=== PATIENT | female | born 1980 | race Caucasian/White ===

== ENCOUNTER 2016-12-05 16:19 | Emergency (ER) | payer OTHER ==
[2016-12-05] MEDS ORDERED: METOCLOPRAMIDE 5 MG/ML 2 ML VIAL IVP STA (16:32)
[2016-12-05] MEDS ORDERED: SODIUM CHLORIDE 0.9% 2,000 ML IV STA (16:32)
[2016-12-05] MEDS ORDERED: HYDROmorphone 1 MG/ML 1 ML SYRINGE IVP STA (16:48)
[2016-12-05 17:10] LABS: Basophils # (A) 0.1 k/uL (0-0.2); Basophils % (A) 1 %; CH 30.7; CHCM 32.6; Eosinophils # (A) 0.1 k/uL (0-0.7); Eosinophils % (A) 2 %; HCT 46.5 % (34.0-46.0); HDW 2.13; HGB 15.2 gm/dL (11.4-16.0); Luc # (Auto) 0.14; Luc % (Auto) 3; Lymphocytes # (A) 0.8 k/uL (1.0-4.8); Lymphocytes % (A) 16 %; MCH 30.8 pg (25.0-35.0); MCHC 32.6 g/dL (31.0-37.0); MCV 94.6 fL (80.0-100.0); Mean Platelet Volume 7.2; Monocytes # (A) 0.4 k/uL (0-1.0); Monocytes % (A) 8 %; Neutrophils # (A) 3.7 k/uL (1.3-7.7); Neutrophils % (A) 71 %; RBC 4.92 m/uL (3.80-5.40); RDW 13.3 % (11.5-15.5); WBC 5.3 k/uL (3.8-10.6); WBC (Perox) 5.01
[2016-12-05 17:36] LABS: ALT 32 U/L (9-52); AST 28 U/L (14-36); Alkaline Phosphatase 60 U/L (38-126); Amylase 63 U/L (30-110); Anion Gap 11 mmol/L; Blood Urea Nitrogen 15 mg/dL (7-17); Calcium 9.5 mg/dL (8.4-10.2); Carbon Dioxide 26 mmol/L (22-30); Chloride 98 mmol/L (98-107); Glucose 388 mg/dL (74-99); Non-African American GFR(MDRD) >60 (>60 ml/min/1.73 sqM); Potassium 3.9 mmol/L (3.5-5.1); Sodium 135 mmol/L (137-145); Total Bilirubin 0.9 mg/dL (0.2-1.3); Total Protein 7.5 g/dL (6.3-8.2)
[2016-12-05 17:55] LABS: Appearance,Urine Clear (Clear); Bilirubin,Urine Negative (Negative); Glucose,Urine (UA) 4+ (Negative); Leukocyte Esterase,Urine Negative (Negative); Nitrite,Urine Negative (Negative); Protein,Urine Negative (Negative); Specific Gravity,Urine 1.032 (1.001-1.035); UA Billing (MACRO vs. MICRO) CHEM; Urobilinogen,Urine <2.0 mg/dL (<2.0)
--- NOTE | 2016-12-05 18:06 | ED ---
Nausea/Vomiting/Diarrhea HPI - General Chief complaint: Nausea/Vomiting/Diarrhea Stated complaint: Vomiting Time Seen by Provider: 12/05/16 16:32 Source: patient, RN notes reviewed Mode of arrival: ambulatory Limitations: no limitations - History of Present Illness Initial comments: This a 36-year-old female presents emergency Department chief complaint of nausea vomiting hyperglycemia. Patient has known diabetic. Patient states that she feels she may have picked up a GI bug. States that she's been vomiting since last night continues to try to drink. Patient states her, right eye. Patient states that he is worried about possible DKA. Patient denies fever, chills, headache or dizziness. Denies any chest pain or shortness of breath. - Related Data Home Medications Medication Instructions Recorded Confirmed INSULIN LISPRO (humaLOG) [humaLOG See Protocol SQ TID 10/28/15 12/05/16 (formulary)] Melatonin 5 mg PO HS 10/28/15 12/05/16 Insulin Detemir [Levemir] 30 unit SQ HS 04/24/16 12/05/16 Cyclobenzaprine [Flexeril] 10 mg PO DAILY PRN 12/05/16 12/05/16 HYDROcodone/APAP 10-325MG [[place] 1 tab PO DAILY PRN 12/05/16 12/05/16 10-325] Lurasidone [Latuda] 80 mg PO HS 12/05/16 12/05/16 Ondansetron [Zofran ODT] 4 mg PO Q8HR PRN 12/05/16 12/05/16 lamoTRIgine [LaMICtal] 150 mg PO BID 12/05/16 12/05/16 Allergies Allergy/AdvReac Type Severity Reaction Status Date / Time prednisone AdvReac Hallucinati Verified 12/05/16 17:15 ons Review of Systems ROS Statement: Those systems with pertinent positive or pertinent negative responses have been documented in the HPI. ROS Other: All systems not noted in ROS Statement are negative. Past Medical History Past Medical History: Diabetes Mellitus Additional Past Medical History / Comment(s): 01/07/15 admitted to [facility] with c/o liteheadeness/dizziness bs at home/meter read high>500 History of Any Multi-Drug Resistant Organisms: None Reported Past Surgical History: Breast Surgery, Section Additional Past Surgical History / Comment(s): x2, breast augmentation Past Anesthesia/Blood Transfusion Reactions: No Reported Reaction Past Psychological History: Anxiety, Bipolar, Depression, Panic Disorder Smoking Status: Former smoker Past Alcohol Use History: None Reported Past Drug Use History: None Reported - Past Family History Father Family Medical History: Hyperlipidemia, Hypertension Mother Family Medical History: No Reported History General Exam Limitations: no limitations General appearance: alert, in no apparent distress Head exam: Present: atraumatic, normocephalic, normal inspection Respiratory exam: Present: normal lung sounds bilaterally. Absent: respiratory distress, wheezes, rales, rhonchi, stridor Cardiovascular Exam: Present: regular rate, normal rhythm, normal heart sounds. Absent: systolic murmur, diastolic murmur, rubs, gallop, clicks GI/Abdominal exam: Present: soft, normal bowel sounds. Absent: distended, tenderness, guarding, rebound, rigid Back exam: Absent: CVA tenderness (R), CVA tenderness (L) Neurological exam: Present: alert, oriented X3, CN II-XII intact Skin exam: Present: warm, dry, intact, normal color. Absent: rash Course Vital Signs 12/05/16 16:26 Temperature 98.7 F Pulse Rate 97 Respiratory 20 Rate Blood Pressure 140/103 O2 Sat by Pulse 98 Oximetry - Reevaluation(s) Reevaluation #1: 12/05/16 18:06 Patient was reevaluated time. Patient states she is feeling improved after IV fluids. Patient up-to-date on lab results. Patient bicarb within normal limits , no anion gap. Patient is acetone positive with a blood glucose of 388. Patient will have Accu-Chek Reevaluation #2: 12/05/16 18:16 Patient's blood sugar is 260 after 1 L of fluids. Patient was given additional liter of IV fluids and 3 units of insulin. Patient prefers to use her own. Medical Decision Making - Medical Decision Making 36-year-old female presents emergency department for nausea vomiting hyperglycemia. Patient states she is feeling improved after 2 L of IV fluids, insulin. Patient's glucose currently is 216 she has tolerated fluids in the emergency department. Patient will was offered admission but she states that she rather go home at this time. She states she has Zofran at home currently and states that she feels that she can manage this at home. Patient and I gap 11, bicarb within normal limits. Patient states she'll return if symptoms worsen. - Lab Data Result diagrams: 12/05/16 16:55 12/05/16 16:55 Lab Results 12/05/16 12/05/16 12/05/16 Range/Units 16:55 16:55 17:43 WBC 5.3 (3.8-10.6) k/uL RBC 4.92 (3.80-5.40) m/uL Hgb 15.2 (11.4-16.0) gm/dL Hct 46.5 H (34.0-46.0) % MCV 94.6 (80.0-100.0) fL MCH 30.8 (25.0-35.0) pg MCHC 32.6 (31.0-37.0) g/dL RDW 13.3 (11.5-15.5) % Plt Count 231 (150-450) k/uL Neutrophils % 71 % Lymphocytes % 16 % Monocytes % 8 % Eosinophils % 2 % Basophils % 1 % Neutrophils # 3.7 (1.3-7.7) k/uL Lymphocytes # 0.8 L (1.0-4.8) k/uL Monocytes # 0.4 (0-1.0) k/uL Eosinophils # 0.1 (0-0.7) k/uL Basophils # 0.1 (0-0.2) k/uL Sodium 135 L (137-145) mmol/L Potassium 3.9 (3.5-5.1) mmol/L Chloride 98 (98-107) mmol/L Carbon Dioxide 26 (22-30) mmol/L Anion Gap 11 mmol/L BUN 15 (7-17) mg/dL Creatinine 0.61 (0.52-1.04) mg/dL Est GFR (MDRD) Af Amer >60 (>60 ml/min/1.73 sqM) Est GFR (MDRD) Non-Af >60 (>60 ml/min/1.73 sqM) Glucose 388 H (74-99) mg/dL POC Glucose (mg/dL) (75-99) mg/dL POC Glu Sales Associate Cashier ID Calcium 9.5 (8.4-10.2) mg/dL Total Bilirubin 0.9 (0.2-1.3) mg/dL AST 28 (14-36) U/L ALT 32 (9-52) U/L Alkaline Phosphatase 60 (38-126) U/L Total Protein 7.5 (6.3-8.2) g/dL Albumin 4.5 (3.5-5.0) g/dL Amylase 63 (30-110) U/L Lipase 111 (23-300) U/L Urine Color Urine Appearance (Clear) Urine pH (5.0-8.0) Ur Specific [place] (1.001-1.035) Urine Protein (Negative) Urine Glucose (UA) (Negative) Urine Ketones (Negative) Urine Blood (Negative) Urine Nitrite (Negative) Urine Bilirubin (Negative) Urine Urobilinogen (<2.0) mg/dL Ur Leukocyte Esterase (Negative) Urine HCG, Qual Not Detected (Not Detectd) Acetone, Qual Positive (Negative) 12/05/16 12/05/16 12/05/16 Range/Units 17:43 18:05 19:01 WBC (3.8-10.6) k/uL RBC (3.80-5.40) m/uL Hgb (11.4-16.0) gm/dL Hct (34.0-46.0) % MCV (80.0-100.0) fL MCH (25.0-35.0) pg MCHC (31.0-37.0) g/dL RDW (11.5-15.5) % Plt Count (150-450) k/uL Neutrophils % % Lymphocytes % % Monocytes % % Eosinophils % % Basophils % % Neutrophils # (1.3-7.7) k/uL Lymphocytes # (1.0-4.8) k/uL Monocytes # (0-1.0) k/uL Eosinophils # (0-0.7) k/uL Basophils # (0-0.2) k/uL Sodium (137-145) mmol/L Potassium (3.5-5.1) mmol/L Chloride (98-107) mmol/L Carbon Dioxide (22-30) mmol/L Anion Gap mmol/L BUN (7-17) mg/dL Creatinine (0.52-1.04) mg/dL Est GFR (MDRD) Af Amer (>60 ml/min/1.73 sqM) Est GFR (MDRD) Non-Af (>60 ml/min/1.73 sqM) Glucose (74-99) mg/dL POC Glucose (mg/dL) 265 H 217 H (75-99) mg/dL POC Glu Sales Associate Cashier ID Kiley Alexander Lindsay Calcium (8.4-10.2) mg/dL Total Bilirubin (0.2-1.3) mg/dL AST (14-36) U/L ALT (9-52) U/L Alkaline Phosphatase (38-126) U/L Total Protein (6.3-8.2) g/dL Albumin (3.5-5.0) g/dL Amylase (30-110) U/L Lipase (23-300) U/L Urine Color Yellow Urine Appearance Clear (Clear) Urine pH 5.0 (5.0-8.0) Ur Specific [place] 1.032 (1.001-1.035) Urine Protein Negative (Negative) Urine Glucose (UA) 4+ H (Negative) Urine Ketones 2+ H (Negative) Urine Blood Negative (Negative) Urine Nitrite Negative (Negative) Urine Bilirubin Negative (Negative) Urine Urobilinogen <2.0 (<2.0) mg/dL Ur Leukocyte Esterase Negative (Negative) Urine HCG, Qual (Not Detectd) Acetone, Qual (Negative) Disposition Clinical Impression: Nausea & vomiting, Hyperglycemia, Ketonuria Disposition: HOME SELF-CARE Condition: Stable Instructions: Acute Nausea and Vomiting (ED) Additional Instructions: Please return to the Emergency Department if symptoms worsen or any other concerns. Time of Disposition: 19:16
[2016-12-05 18:07] LABS: Glucose,Whole Blood 265 mg/dL (75-99)
[2016-12-05 19:07] LABS: Glucose,Whole Blood 217 mg/dL (75-99)
[2016-12-05 19:14] LABS: Ketones,Urine 2+ (Negative)
[2016-12-05] MEDS ORDERED: ONDANSETRON 4 MG/2 ML VIAL IVP STA (19:15)
[2016-12-05 19:38] VITALS: BP 141/88; PULSE 87; RESP 18; TEMP 96.9
== END 2016-12-05 19:38 | disposition home or self-care (01) ==
LOC: EC 16:19
DX: R11.2 Nausea with vomiting, unspecified (principal); E11.65 Type 2 diabetes mellitus with hyperglycemia; R82.4 Acetonuria; F31.9 Bipolar disorder, unspecified; F41.9 Anxiety disorder, unspecified; F41.0 Panic disorder [episodic paroxysmal anxiety]; Z87.891 Personal history of nicotine dependence; Z79.4 Long term (current) use of insulin; Z79.899 Other long term (current) drug therapy; Z88.8 Allergy status to other drugs, medicaments and biological substances
CPT/HCPCS: 36415; 80053; 82150; 82009; 83690; 85025; 81003; 81025; 99284; 96374; 96375 ×2; 96361 ×2; J2765; J2405; J1170

== ENCOUNTER 2017-03-08 15:13 | Emergency (ER) | payer OTHER ==
[2017-03-08 15:24] VITALS: TEMP 98.4
[2017-03-08 15:37] LABS: Glucose,Whole Blood >600 mg/dL (75-99)
[2017-03-08] MEDS ORDERED: SODIUM CHLORIDE 0.9% 1,000 ML IV STA ×2 (15:38)
[2017-03-08] MEDS ORDERED: ONDANSETRON 4 MG/2 ML VIAL IVP STA (15:38)
[2017-03-08] MEDS ORDERED: INSULIN REGULAR 100 UNIT in SODIUM CHLORIDE 0.9% 100 ML IV ONE (16:00)
[2017-03-08] MEDS ORDERED: HYDROcodone/APAP 10-325MG 1 EACH TAB PO ONE (16:19)
[2017-03-08 16:32] LABS: Appearance,Urine Clear (Clear); Bacteria,Urine Rare /hpf; Bilirubin,Urine Negative (Negative); Glucose,Urine (UA) 4+ (Negative); Ketones,Urine 1+ (Negative); Leukocyte Esterase,Urine Negative (Negative); Mucus,Urine Rare /hpf; Nitrite,Urine Negative (Negative); Particle Count 611; Protein,Urine Negative (Negative); RBC,Urine 9 /hpf (0-5); Specific Gravity,Urine 1.018 (1.001-1.035); Squamous Epithelial Cell,Urine 1 /hpf (0-4); UA Billing (MACRO vs. MICRO) MICRO; Urobilinogen,Urine <2.0 mg/dL (<2.0); WBC,Urine 3 /hpf (0-5)
[2017-03-08 16:32] LABS: Basophils % (A) 0 %; CH 31.4; CHCM 32.1; Eosinophils # (A) 0.2 k/uL (0-0.7); Eosinophils % (A) 2 %; HCT 37.2 % (34.0-46.0); HDW 2.16; HGB 12.2 gm/dL (11.4-16.0); Luc # (Auto) 0.09; Luc % (Auto) 1; Lymphocytes # (A) 1.6 k/uL (1.0-4.8); Lymphocytes % (A) 15 %; MCH 32.3 pg (25.0-35.0); MCHC 32.8 g/dL (31.0-37.0); MCV 98.4 fL (80.0-100.0); Mean Platelet Volume 7.6; Monocytes # (A) 0.5 k/uL (0-1.0); Monocytes % (A) 4 %; Neutrophils # (A) 8.5 k/uL (1.3-7.7); Neutrophils % (A) 79 %; RBC 3.78 m/uL (3.80-5.40); WBC 10.8 k/uL (3.8-10.6); WBC (Perox) 11.49
[2017-03-08 16:41] LABS: Partial Thromboplastin Time 24.2 sec (22.0-30.0); Prothrombin Time 10.3 sec (9.0-12.0)
[2017-03-08 16:45] LABS: ALT 31 U/L (9-52); AST 23 U/L (14-36); Alkaline Phosphatase 43 U/L (38-126); Anion Gap 10 mmol/L; Blood Urea Nitrogen 12 mg/dL (7-17); Calcium 8.6 mg/dL (8.4-10.2); Carbon Dioxide 23 mmol/L (22-30); Chloride 101 mmol/L (98-107); Glucose 443 mg/dL (74-99); Magnesium 1.6 mg/dL (1.6-2.3); Non-African American GFR(MDRD) >60 (>60 ml/min/1.73 sqM); Phosphorous 2.7 mg/dL (2.5-4.5); Potassium 3.9 mmol/L (3.5-5.1); Sodium 134 mmol/L (137-145); Total Bilirubin 0.4 mg/dL (0.2-1.3); Total Protein 5.7 g/dL (6.3-8.2)
--- NOTE | 2017-03-08 16:45 | XR ---
EXAMINATION TYPE: XR chest 2V DATE OF EXAM: 03/08/2017 COMPARISON: 04/24/2016 INDICATION: Weakness dizziness TECHNIQUE: Frontal and lateral views of the chest are obtained. FINDINGS: The heart size is normal. The pulmonary vasculature is normal. The lungs are clear. IMPRESSION: 1. No acute pulmonary process.
--- NOTE | 2017-03-08 16:57 | ED ---
General Adult HPI - General Chief complaint: Recheck/Abnormal Lab/Rx Stated complaint: diabetic/high sugar Time Seen by Provider: 03/08/17 15:31 Source: patient Mode of arrival: ambulatory Limitations: no limitations - History of Present Illness Initial comments: This 36-year-old white female presents with the complaint of high blood sugars. She states that her blood sugars have been reading high for the last week and a half. She's had some diffuse myalgias. She's had occasional cough and mild rhinorrhea. She denies any fevers or chills. She denies any known infections. His been no difficulty in breathing or chest pain. She denies any urinary frequency urgency or dysuria. There is been no rashes identified. She denies any abdominal pain. She does have a history of type 1 diabetes mellitus. She works as an ER nurse. She states that she's been taking extra insulin recently and her blood sugar still are reading very high. She has been in DKA several times in the past. No other complaints or modifying factors. - Related Data Home Medications Medication Instructions Recorded Confirmed INSULIN LISPRO (humaLOG) [humaLOG See Protocol SQ AC-TID 10/28/15 03/08/17 (formulary)] Insulin Detemir [Levemir] 30 unit SQ HS 04/24/16 03/08/17 HYDROcodone/APAP 10-325MG [[place] 1 tab PO TID PRN 12/05/16 03/08/17 10-325] Lurasidone [Latuda] 80 mg PO HS 12/05/16 03/08/17 lamoTRIgine [LaMICtal] 150 mg PO HS 12/05/16 03/08/17 Allergies Allergy/AdvReac Type Severity Reaction Status Date / Time prednisone AdvReac Hallucinati Verified 03/08/17 16:05 ons Review of Systems ROS Statement: Those systems with pertinent positive or pertinent negative responses have been documented in the HPI. ROS Other: All systems not noted in ROS Statement are negative. Past Medical History Past Medical History: Diabetes Mellitus Additional Past Medical History / Comment(s): 01/07/15 admitted to [facility] with c/o liteheadeness/dizziness bs at home/meter read high>500 History of Any Multi-Drug Resistant Organisms: None Reported Past Surgical History: Breast Surgery, Section Additional Past Surgical History / Comment(s): x2, breast augmentation Past Anesthesia/Blood Transfusion Reactions: No Reported Reaction Past Psychological History: Anxiety, Bipolar, Depression, Panic Disorder Smoking Status: Current every day smoker Past Alcohol Use History: None Reported Past Drug Use History: None Reported - Past Family History Father Family Medical History: Hyperlipidemia, Hypertension Mother Family Medical History: No Reported History General Exam - General Exam Comments Initial Comments: GENERAL: The patient is well nourished and well hydrated. VITAL SIGNS: Heart rate, blood pressure, respiratory rate reviewed as recorded in nurse's notes. EYES: Pupils are round and reactive. Extraocular movements are intact. No conjunctival / lid redness or swelling. ENT: No external evidence of injury, swelling, or ecchymosis. Airway is patent. Throat is clear. NECK: Nontender. No swelling or evidence of injury. No subcutaneous emphysema. Trachea is midline. No thyroid mass. HEART: Regular rate and rhythm. Good peripheral pulses. LUNGS/CHEST: Breath sounds clear and equal bilaterally. No rales, rhonchi, or wheezes. No ecchymosis, subcutaneous emphysema, or tenderness. ABDOMEN: Abdomen soft without tenderness. No palpable masses or organomegaly. No peritoneal signs. No abdominal wall swelling or ecchymosis. EXTREMITIES: No extremity tenderness. Normal muscle tone and function. No thoracolumbar tenderness. NEUROLOGIC: Sensation is grossly intact. Cranial nerve exam reveals face is symmetrical, tongue is midline, speech is clear. SKIN: No abrasions or ecchymosis is noted. No induration or masses noted. PSYCHIATRIC: Alert and oriented. Appropriate behavior and judgment. Limitations: no limitations Course Vital Signs 03/08/17 03/08/17 03/08/17 15:22 16:09 16:53 Temperature 98.4 F Pulse Rate 108 H 104 H 102 H Respiratory 20 18 18 Rate Blood Pressure 142/108 147/100 160/96 O2 Sat by Pulse 100 98 Oximetry Medical Decision Making - Medical Decision Making The patient was seen and examined. All diagnostics were reviewed. An IV was started and she is hydrated. She also started on an insulin drip. An EKG was done and shows a normal sinus rhythm at a rate of [address]-T wave changes identified. The patient's MT interval is 152, QRS duration is 96, and QTC intervals 457. Her blood sugar did come down quite nicely. The laboratories reviewed. Her blood sugar is in the 400s. He later comes down into the 300s and approximately 150 per Accu-Chek. The insulin drip was stopped and she was given some food. Remainder of laboratory values were all essentially within normal limits with a mild leukocytosis. There is no evidence of urinary tract infection. The chest x-ray is clear. The exact cause of her significant hyperglycemia incident is not definitively determined. She states that she's been struggling over the past 2 years with her blood sugar levels as she previously was on an insulin pump. She apparently now had a change of insurance and cannot follow up with leak detector tells she gets her new insurance in June. Is felt as though she would benefit from seeing an leak detector and reobtaining the insulin pump and this was discussed with her. It is felt as though she is stable for discharge and leaves in no severe distress. She does relate that she will eat additional food and check her blood sugars tonight regularly. She did receive 1 [place] for her myalgias and feels much improved in this regard as well. - Lab Data Result diagrams: 03/08/17 16:23 03/08/17 16:23 Lab Results 03/08/17 03/08/17 03/08/17 Range/Units 15:33 16:16 16:23 WBC (3.8-10.6) k/uL RBC (3.80-5.40) m/uL Hgb (11.4-16.0) gm/dL Hct (34.0-46.0) % MCV (80.0-100.0) fL MCH (25.0-35.0) pg MCHC (31.0-37.0) g/dL RDW (11.5-15.5) % Plt Count (150-450) k/uL Neutrophils % % Lymphocytes % % Monocytes % % Eosinophils % % Basophils % % Neutrophils # (1.3-7.7) k/uL Lymphocytes # (1.0-4.8) k/uL Monocytes # (0-1.0) k/uL Eosinophils # (0-0.7) k/uL Basophils # (0-0.2) k/uL PT (9.0-12.0) sec INR (<1.2) APTT (22.0-30.0) sec Sodium 134 L (137-145) mmol/L Potassium 3.9 (3.5-5.1) mmol/L Chloride 101 (98-107) mmol/L Carbon Dioxide 23 (22-30) mmol/L Anion Gap 10 mmol/L BUN 12 (7-17) mg/dL Creatinine 0.59 (0.52-1.04) mg/dL Est GFR (MDRD) Af Amer >60 (>60 ml/min/1.73 sqM) Est GFR (MDRD) Non-Af >60 (>60 ml/min/1.73 sqM) Glucose 443 H (74-99) mg/dL POC Glucose (mg/dL) >600 H (75-99) mg/dL POC Glu Integration Specialist ID Danial Mattson Calcium 8.6 (8.4-10.2) mg/dL Phosphorus 2.7 (2.5-4.5) mg/dL Magnesium 1.6 (1.6-2.3) mg/dL Total Bilirubin 0.4 (0.2-1.3) mg/dL AST 23 (14-36) U/L ALT 31 (9-52) U/L Alkaline Phosphatase 43 (38-126) U/L Total Protein 5.7 L (6.3-8.2) g/dL Albumin 3.6 (3.5-5.0) g/dL Urine Color Colorless Urine Appearance Clear (Clear) Urine pH 5.0 (5.0-8.0) Ur Specific [place] 1.018 (1.001-1.035) Urine Protein Negative (Negative) Urine Glucose (UA) 4+ H (Negative) Urine Ketones 1+ H (Negative) Urine Blood Moderate H (Negative) Urine Nitrite Negative (Negative) Urine Bilirubin Negative (Negative) Urine Urobilinogen <2.0 (<2.0) mg/dL Ur Leukocyte Esterase Negative (Negative) Urine RBC 9 H (0-5) /hpf Urine WBC 3 (0-5) /hpf Ur Squamous Epith Cells 1 (0-4) /hpf Urine Bacteria Rare H (None) /hpf Urine Mucus Rare H (None) /hpf Acetone, Qual Negative (Negative) 03/08/17 03/08/17 03/08/17 Range/Units 16:23 16:23 16:56 WBC 10.8 H (3.8-10.6) k/uL RBC 3.78 L (3.80-5.40) m/uL Hgb 12.2 (11.4-16.0) gm/dL Hct 37.2 (34.0-46.0) % MCV 98.4 (80.0-100.0) fL MCH 32.3 (25.0-35.0) pg MCHC 32.8 (31.0-37.0) g/dL RDW 14.0 (11.5-15.5) % Plt Count 281 (150-450) k/uL Neutrophils % 79 % Lymphocytes % 15 % Monocytes % 4 % Eosinophils % 2 % Basophils % 0 % Neutrophils # 8.5 H (1.3-7.7) k/uL Lymphocytes # 1.6 (1.0-4.8) k/uL Monocytes # 0.5 (0-1.0) k/uL Eosinophils # 0.2 (0-0.7) k/uL Basophils # 0.0 (0-0.2) k/uL PT 10.3 (9.0-12.0) sec INR 1.0 (<1.2) APTT 24.2 (22.0-30.0) sec Sodium (137-145) mmol/L Potassium (3.5-5.1) mmol/L Chloride (98-107) mmol/L Carbon Dioxide (22-30) mmol/L Anion Gap mmol/L BUN (7-17) mg/dL Creatinine (0.52-1.04) mg/dL Est GFR (MDRD) Af Amer (>60 ml/min/1.73 sqM) Est GFR (MDRD) Non-Af (>60 ml/min/1.73 sqM) Glucose (74-99) mg/dL POC Glucose (mg/dL) 307 H (75-99) mg/dL POC Glu Integration Specialist ID Zoe Pinzon Calcium (8.4-10.2) mg/dL Phosphorus (2.5-4.5) mg/dL Magnesium (1.6-2.3) mg/dL Total Bilirubin (0.2-1.3) mg/dL AST (14-36) U/L ALT (9-52) U/L Alkaline Phosphatase (38-126) U/L Total Protein (6.3-8.2) g/dL Albumin (3.5-5.0) g/dL Urine Color Urine Appearance (Clear) Urine pH (5.0-8.0) Ur Specific [place] (1.001-1.035) Urine Protein (Negative) Urine Glucose (UA) (Negative) Urine Ketones (Negative) Urine Blood (Negative) Urine Nitrite (Negative) Urine Bilirubin (Negative) Urine Urobilinogen (<2.0) mg/dL Ur Leukocyte Esterase (Negative) Urine RBC (0-5) /hpf Urine WBC (0-5) /hpf Ur Squamous Epith Cells (0-4) /hpf Urine Bacteria (None) /hpf Urine Mucus (None) /hpf Acetone, Qual (Negative) 03/08/17 Range/Units 17:53 WBC (3.8-10.6) k/uL RBC (3.80-5.40) m/uL Hgb (11.4-16.0) gm/dL Hct (34.0-46.0) % MCV (80.0-100.0) fL MCH (25.0-35.0) pg MCHC (31.0-37.0) g/dL RDW (11.5-15.5) % Plt Count (150-450) k/uL Neutrophils % % Lymphocytes % % Monocytes % % Eosinophils % % Basophils % % Neutrophils # (1.3-7.7) k/uL Lymphocytes # (1.0-4.8) k/uL Monocytes # (0-1.0) k/uL Eosinophils # (0-0.7) k/uL Basophils # (0-0.2) k/uL PT (9.0-12.0) sec INR (<1.2) APTT (22.0-30.0) sec Sodium (137-145) mmol/L Potassium (3.5-5.1) mmol/L Chloride (98-107) mmol/L Carbon Dioxide (22-30) mmol/L Anion Gap mmol/L BUN (7-17) mg/dL Creatinine (0.52-1.04) mg/dL Est GFR (MDRD) Af Amer (>60 ml/min/1.73 sqM) Est GFR (MDRD) Non-Af (>60 ml/min/1.73 sqM) Glucose (74-99) mg/dL POC Glucose (mg/dL) 157 H (75-99) mg/dL POC Glu Integration Specialist ID Alma Rosa Clark Calcium (8.4-10.2) mg/dL Phosphorus (2.5-4.5) mg/dL Magnesium (1.6-2.3) mg/dL Total Bilirubin (0.2-1.3) mg/dL AST (14-36) U/L ALT (9-52) U/L Alkaline Phosphatase (38-126) U/L Total Protein (6.3-8.2) g/dL Albumin (3.5-5.0) g/dL Urine Color Urine Appearance (Clear) Urine pH (5.0-8.0) Ur Specific [place] (1.001-1.035) Urine Protein (Negative) Urine Glucose (UA) (Negative) Urine Ketones (Negative) Urine Blood (Negative) Urine Nitrite (Negative) Urine Bilirubin (Negative) Urine Urobilinogen (<2.0) mg/dL Ur Leukocyte Esterase (Negative) Urine RBC (0-5) /hpf Urine WBC (0-5) /hpf Ur Squamous Epith Cells (0-4) /hpf Urine Bacteria (None) /hpf Urine Mucus (None) /hpf Acetone, Qual (Negative) Disposition Clinical Impression: Hyperglycemia, Diabetes mellitus Disposition: HOME SELF-CARE Condition: Good Instructions: Diabetic Hyperglycemia (ED) Referrals: None,Stated [Primary Care Provider] - 1-2 days Time of Disposition: 18:10
[2017-03-08 17:00] LABS: Glucose,Whole Blood 307 mg/dL (75-99)
[2017-03-08 17:55] LABS: Glucose,Whole Blood 157 mg/dL (75-99)
[2017-03-08 18:22] VITALS: BP 141/94; PULSE 100; RESP 18
== END 2017-03-08 18:21 | disposition home or self-care (01) ==
LOC: EC 15:13
DX: E10.65 Type 1 diabetes mellitus with hyperglycemia (principal); F31.9 Bipolar disorder, unspecified; F41.9 Anxiety disorder, unspecified; F41.0 Panic disorder [episodic paroxysmal anxiety]; F17.200 Nicotine dependence, unspecified, uncomplicated; Z79.4 Long term (current) use of insulin; Z79.899 Other long term (current) drug therapy; Z88.8 Allergy status to other drugs, medicaments and biological substances
CPT/HCPCS: 36415; 93005; 80053; 82009; 83735; 84100; 85025; 85610; 85730; 81001; 87040; 87086; 71020; 99284; 96374; 96361 ×2; J2405

== ENCOUNTER 2017-06-19 18:54 | Emergency (ER) | payer OTHER ==
[2017-06-19 19:04] VITALS: RESP 18
[2017-06-19] MEDS ORDERED: SODIUM CHLORIDE 0.9% 1,000 ML IV STA (19:21)
[2017-06-19] MEDS ORDERED: ONDANSETRON 4 MG/2 ML VIAL IVP STA (19:21)
[2017-06-19] MEDS ORDERED: SODIUM CHLORIDE 0.9% 2,000 ML IV STA (19:21)
[2017-06-19] MEDS ORDERED: FAMOTIDINE 20 MG/2 ML VIAL IV STA (19:22)
[2017-06-19] MEDS ORDERED: ACETAMINOPHEN IV (For NPO) 1,000 MG in EMPTY BAG 1 BAG IVPB ONE (19:22)
[2017-06-19 20:05] LABS: Basophils % (A) 0 %; CH 30.5; CHCM 32.1; Eosinophils # (A) 0.1 k/uL (0-0.7); Eosinophils % (A) 2 %; HCT 39.6 % (34.0-46.0); HDW 2.05; HGB 12.9 gm/dL (11.4-16.0); Luc # (Auto) 0.11; Luc % (Auto) 2; Lymphocytes % (A) 29 %; MCH 31.1 pg (25.0-35.0); MCHC 32.6 g/dL (31.0-37.0); MCV 95.5 fL (80.0-100.0); Mean Platelet Volume 7.6; Monocytes # (A) 0.5 k/uL (0-1.0); Monocytes % (A) 6 %; Neutrophils # (A) 4.3 k/uL (1.3-7.7); Neutrophils % (A) 61 %; RBC 4.15 m/uL (3.80-5.40); RDW 13.4 % (11.5-15.5); WBC 7.1 k/uL (3.8-10.6)
[2017-06-19 20:11] LABS: Appearance,Urine Cloudy (Clear); Bilirubin,Urine Negative (Negative); Glucose,Urine (UA) Negative (Negative); Ketones,Urine Negative (Negative); Leukocyte Esterase,Urine Negative (Negative); Mucus,Urine Rare /hpf; Nitrite,Urine Negative (Negative); Particle Count 3090; Protein,Urine Negative (Negative); RBC,Urine <1 /hpf (0-5); Specific Gravity,Urine 1.014 (1.001-1.035); Squamous Epithelial Cell,Urine 7 /hpf (0-4); UA Billing (MACRO vs. MICRO) MICRO; Urobilinogen,Urine <2.0 mg/dL (<2.0); WBC,Urine 3 /hpf (0-5)
[2017-06-19 20:16] LABS: HCG,Qualitative Serum Not Detected
[2017-06-19 20:20] LABS: ALT 27 U/L (9-52); AST 18 U/L (14-36); Alkaline Phosphatase 38 U/L (38-126); Amylase 52 U/L (30-110); Anion Gap 8 mmol/L; Blood Urea Nitrogen 10 mg/dL (7-17); Calcium 9.4 mg/dL (8.4-10.2); Carbon Dioxide 29 mmol/L (22-30); Chloride 104 mmol/L (98-107); Glucose 79 mg/dL (74-99); Non-African American GFR(MDRD) >60 (>60 ml/min/1.73 sqM); Potassium 3.5 mmol/L (3.5-5.1); Sodium 141 mmol/L (137-145); Total Bilirubin 0.2 mg/dL (0.2-1.3); Total Protein 6.1 g/dL (6.3-8.2)
[2017-06-19] MEDS ORDERED: KETOROLAC 30 MG/ML 1 ML VIAL IVP STA (20:43)
--- NOTE | 2017-06-19 20:53 | XR ---
EXAMINATION TYPE: XR abdomen acute w cxr DATE OF EXAM: 06/19/2017 COMPARISON: NONE HISTORY: Nausea and vomiting TECHNIQUE: 3 views FINDINGS: Heart and mediastinum are normal. Lungs are clear. Diaphragm is normal. Bony thorax is intact. There are no pathologic calcifications over the kidneys. Bowel gas pattern is normal. There is no sign of intestinal obstruction or pneumoperitoneum. Fecal pa ttern is normal. There is no sign of a mass. IMPRESSION: Nonacute abdomen. Normal chest. Chest x-ray stable compared to 03/08/2017.
--- NOTE | 2017-06-19 22:05 | ED ---
Nausea/Vomiting/Diarrhea HPI - General Chief complaint: Nausea/Vomiting/Diarrhea Stated complaint: High sugar/vomiting/diabete Time Seen by Provider: 06/19/17 19:07 Source: patient Mode of arrival: ambulatory Limitations: no limitations - History of Present Illness Initial comments: This 37-year-old white female presents with a complaint of nausea vomiting and diarrhea. She's had multiple episodes of vomiting today. She had multiple episodes of diarrhea yesterday but this has stopped today. Her symptoms have been present for the last couple of days. She denies any abdominal pain or fevers. She does have a history of diabetes and history of DKA and is unsure if this could be related. Her blood sugars have been running in the 300s. She did take some insulin prior to arrival. She denies any other complaints or modifying factors. She does work as an ER nurse at [employer] and states that she has been around a lot of sick people recently. - Related Data Home Medications Medication Instructions Recorded Confirmed INSULIN LISPRO (humaLOG) [humaLOG] See Protocol SQ AC-TID 10/28/15 06/19/17 Insulin Detemir [Levemir] 30 unit SQ HS 04/24/16 06/19/17 HYDROcodone/APAP 10-325MG [[place] 1 tab PO TID PRN 12/05/16 06/19/17 10-325] Lurasidone [Latuda] 80 mg PO HS 12/05/16 06/19/17 lamoTRIgine [LaMICtal] 150 mg PO HS 12/05/16 06/19/17 Previous Rx's Medication Instructions Recorded Ondansetron [Zofran ODT] 8 mg PO Q8HR PRN #20 tab 06/19/17 Allergies Allergy/AdvReac Type Severity Reaction Status Date / Time prednisone AdvReac Hallucinati Verified 06/19/17 19:24 ons Review of Systems ROS Statement: Those systems with pertinent positive or pertinent negative responses have been documented in the HPI. ROS Other: All systems not noted in ROS Statement are negative. Past Medical History Past Medical History: Diabetes Mellitus Additional Past Medical History / Comment(s): 01/07/15 admitted to [facility] with c/o liteheadeness/dizziness bs at home/meter read high>500 History of Any Multi-Drug Resistant Organisms: None Reported Past Surgical History: Breast Surgery, Section Additional Past Surgical History / Comment(s): x2, breast augmentation Past Anesthesia/Blood Transfusion Reactions: No Reported Reaction Past Psychological History: Anxiety, Bipolar, Depression, Panic Disorder Smoking Status: Current every day smoker Past Alcohol Use History: None Reported Past Drug Use History: None Reported - Past Family History Father Family Medical History: Hyperlipidemia, Hypertension Mother Family Medical History: No Reported History General Exam - General Exam Comments Initial Comments: GENERAL: The patient is well nourished and well hydrated. VITAL SIGNS: Heart rate, blood pressure, respiratory rate reviewed as recorded in nurse's notes. EYES: Pupils are round and reactive. Extraocular movements are intact. No conjunctival / lid redness or swelling. ENT: No external evidence of injury, swelling, or ecchymosis. Airway is patent. Throat is clear. NECK: Nontender. No swelling or evidence of injury. No subcutaneous emphysema. Trachea is midline. No thyroid mass. HEART: Regular rate and rhythm. Good peripheral pulses. LUNGS/CHEST: Breath sounds clear and equal bilaterally. No rales, rhonchi, or wheezes. No ecchymosis, subcutaneous emphysema, or tenderness. ABDOMEN: Abdomen soft without tenderness. No palpable masses or organomegaly. No peritoneal signs. No abdominal wall swelling or ecchymosis. EXTREMITIES: No extremity tenderness. Normal muscle tone and function. No thoracolumbar tenderness. NEUROLOGIC: Sensation is grossly intact. Cranial nerve exam reveals face is symmetrical, tongue is midline, speech is clear. SKIN: No abrasions or ecchymosis is noted. No induration or masses noted. PSYCHIATRIC: Alert and oriented. Appropriate behavior and judgment. Limitations: no limitations Course Vital Signs 06/19/17 06/19/17 19:03 20:25 Temperature 98.5 F Pulse Rate 98 84 Respiratory 18 18 Rate Blood Pressure 167/111 141/88 O2 Sat by Pulse 97 100 Oximetry Medical Decision Making - Medical Decision Making the patient was seen and examined. All diagnostics were reviewed. The laboratory overall is fairly unremarkable. She also had ecchymoses which did not show any acute abnormalities. She was given 2 L of IV fluids as well as some Zofran and Toradol. She is feeling markedly improved on recheck. Is felt as though she likely does have gastroenteritis and is counseled regarding this. Is felt as though she is stable for discharge and lesion no distress. - Lab Data Result diagrams: 06/19/17 19:37 06/19/17 19:37 Lab Results 06/19/17 06/19/17 06/19/17 Range/Units 19:37 19:37 19:37 WBC 7.1 (3.8-10.6) k/uL RBC 4.15 (3.80-5.40) m/uL Hgb 12.9 (11.4-16.0) gm/dL Hct 39.6 (34.0-46.0) % MCV 95.5 (80.0-100.0) fL MCH 31.1 (25.0-35.0) pg MCHC 32.6 (31.0-37.0) g/dL RDW 13.4 (11.5-15.5) % Plt Count 326 (150-450) k/uL Neutrophils % 61 % Lymphocytes % 29 % Monocytes % 6 % Eosinophils % 2 % Basophils % 0 % Neutrophils # 4.3 (1.3-7.7) k/uL Lymphocytes # 2.0 (1.0-4.8) k/uL Monocytes # 0.5 (0-1.0) k/uL Eosinophils # 0.1 (0-0.7) k/uL Basophils # 0.0 (0-0.2) k/uL Sodium 141 (137-145) mmol/L Potassium 3.5 (3.5-5.1) mmol/L Chloride 104 (98-107) mmol/L Carbon Dioxide 29 (22-30) mmol/L Anion Gap 8 mmol/L BUN 10 (7-17) mg/dL Creatinine 0.50 L (0.52-1.04) mg/dL Est GFR (MDRD) Af Amer >60 (>60 ml/min/1.73 sqM) Est GFR (MDRD) Non-Af >60 (>60 ml/min/1.73 sqM) Glucose 79 (74-99) mg/dL Calcium 9.4 (8.4-10.2) mg/dL Total Bilirubin 0.2 (0.2-1.3) mg/dL AST 18 (14-36) U/L ALT 27 (9-52) U/L Alkaline Phosphatase 38 (38-126) U/L Total Protein 6.1 L (6.3-8.2) g/dL Albumin 3.7 (3.5-5.0) g/dL Amylase 52 (30-110) U/L Lipase 65 (23-300) U/L HCG, Qual Not Detected Urine Color Yellow Urine Appearance Cloudy H (Clear) Urine pH 6.0 (5.0-8.0) Ur Specific [place] 1.014 (1.001-1.035) Urine Protein Negative (Negative) Urine Glucose (UA) Negative (Negative) Urine Ketones Negative (Negative) Urine Blood Negative (Negative) Urine Nitrite Negative (Negative) Urine Bilirubin Negative (Negative) Urine Urobilinogen <2.0 (<2.0) mg/dL Ur Leukocyte Esterase Negative (Negative) Urine RBC <1 (0-5) /hpf Urine WBC 3 (0-5) /hpf Ur Squamous Epith Cells 7 H (0-4) /hpf Urine Mucus Rare H (None) /hpf Acetaminophen ug/mL Acetone, Qual Negative (Negative) 06/19/17 Range/Units 19:37 WBC (3.8-10.6) k/uL RBC (3.80-5.40) m/uL Hgb (11.4-16.0) gm/dL Hct (34.0-46.0) % MCV (80.0-100.0) fL MCH (25.0-35.0) pg MCHC (31.0-37.0) g/dL RDW (11.5-15.5) % Plt Count (150-450) k/uL Neutrophils % % Lymphocytes % % Monocytes % % Eosinophils % % Basophils % % Neutrophils # (1.3-7.7) k/uL Lymphocytes # (1.0-4.8) k/uL Monocytes # (0-1.0) k/uL Eosinophils # (0-0.7) k/uL Basophils # (0-0.2) k/uL Sodium (137-145) mmol/L Potassium (3.5-5.1) mmol/L Chloride (98-107) mmol/L Carbon Dioxide (22-30) mmol/L Anion Gap mmol/L BUN (7-17) mg/dL Creatinine (0.52-1.04) mg/dL Est GFR (MDRD) Af Amer (>60 ml/min/1.73 sqM) Est GFR (MDRD) Non-Af (>60 ml/min/1.73 sqM) Glucose (74-99) mg/dL Calcium (8.4-10.2) mg/dL Total Bilirubin (0.2-1.3) mg/dL AST (14-36) U/L ALT (9-52) U/L Alkaline Phosphatase (38-126) U/L Total Protein (6.3-8.2) g/dL Albumin (3.5-5.0) g/dL Amylase (30-110) U/L Lipase (23-300) U/L HCG, Qual Urine Color Urine Appearance (Clear) Urine pH (5.0-8.0) Ur Specific [place] (1.001-1.035) Urine Protein (Negative) Urine Glucose (UA) (Negative) Urine Ketones (Negative) Urine Blood (Negative) Urine Nitrite (Negative) Urine Bilirubin (Negative) Urine Urobilinogen (<2.0) mg/dL Ur Leukocyte Esterase (Negative) Urine RBC (0-5) /hpf Urine WBC (0-5) /hpf Ur Squamous Epith Cells (0-4) /hpf Urine Mucus (None) /hpf Acetaminophen <10.0 ug/mL Acetone, Qual (Negative) Disposition Clinical Impression: Dehydration, Diarrhea, Nausea and vomiting, Gastroenteritis Disposition: HOME SELF-CARE Condition: Good Instructions: Acute Nausea and Vomiting (ED), Acute Diarrhea (ED), Gastroenteritis (ED), Dehydration (ED) Prescriptions: Ondansetron [Zofran ODT] 8 mg PO Q8HR PRN #20 tab PRN Reason: Nausea Referrals: None,Stated [Primary Care Provider] - 1-2 days Time of Disposition: 22:04
[2017-06-19 22:16] VITALS: BP 144/102; PULSE 79; TEMP 98
== END 2017-06-19 22:16 | disposition home or self-care (01) ==
LOC: EC 18:54
DX: E86.0 Dehydration (principal); K52.9 Noninfective gastroenteritis and colitis, unspecified; F31.9 Bipolar disorder, unspecified; E11.9 Type 2 diabetes mellitus without complications; F17.200 Nicotine dependence, unspecified, uncomplicated; Z98.890 Other specified postprocedural states; Z53.20 Procedure and treatment not carried out because of patient's decision for unspecified reasons; Z88.8 Allergy status to other drugs, medicaments and biological substances; Z79.4 Long term (current) use of insulin; Z79.899 Other long term (current) drug therapy
CPT/HCPCS: 36415; 80053; 82150; 82009; 83690; 85025; 81001; 84703; 83520; 74022; 99284; 96374; 96375 ×2; 96361 ×3; J2405; J1885

== ENCOUNTER → 2017-10-23 | Outpatient (CLI) | payer MEDICAID ==
[2017-10-23 16:59] LABS: Basophils % (A) 0 %; Eosinophils # (A) 0.2 k/uL (0-0.7); Eosinophils % (A) 3 %; HCT 36.2 % (34.0-46.0); HGB 11.8 gm/dL (11.4-16.0); Lymphocytes # (A) 2.3 k/uL (1.0-4.8); Lymphocytes % (A) 29 %; MCH 31.3 pg (25.0-35.0); MCHC 32.6 g/dL (31.0-37.0); MCV 95.9 fL (80.0-100.0); Mean Platelet Volume 7.3; Monocytes # (A) 0.6 k/uL (0-1.0); Monocytes % (A) 7 %; Neutrophils # (A) 4.5 k/uL (1.3-7.7); Neutrophils % (A) 59 %; Platelet Count 329 k/uL (150-450); RBC 3.78 m/uL (3.80-5.40); RDW 13.2 % (11.5-15.5); WBC 7.8 k/uL (3.8-10.6)
[2017-10-23 17:21] LABS: ALT 43 U/L (9-52); AST 49 U/L (14-36); Albumin 3.7 g/dL (3.5-5.0); Alkaline Phosphatase 51 U/L (38-126); Anion Gap 9 mmol/L; Blood Urea Nitrogen 12 mg/dL (7-17); Calcium 9.5 mg/dL (8.4-10.2); Carbon Dioxide 31 mmol/L (22-30); Chloride 100 mmol/L (98-107); Cholesterol 176 mg/dL (<200); Glucose 259 mg/dL (74-99); HDL Cholesterol 59 mg/dL (40-60); LDL Cholesterol,Calculated 72 mg/dL (0-99); Sodium 140 mmol/L (137-145); Total Bilirubin 0.2 mg/dL (0.2-1.3); Total Protein 6.4 g/dL (6.3-8.2); Triglycerides 224 mg/dL (<150)
[2017-10-23 17:36] LABS: T4, Free (Free Thyroxine) 0.97 ng/dL (0.78-2.19)
== END | disposition home or self-care (01) ==
LOC: LABWHC1 16:22
PROVIDERS: ATTEND Internal Medicine Endocrinology, Diabetes & Metabolism
DX: Z00.01 Encounter for general adult medical examination with abnormal findings (principal); N92.0 Excessive and frequent menstruation with regular cycle; N93.9 Abnormal uterine and vaginal bleeding, unspecified; R49.9 Unspecified voice and resonance disorder; E10.9 Type 1 diabetes mellitus without complications; G47.9 Sleep disorder, unspecified; Z68.27 Body mass index [BMI] 27.0-27.9, adult
CPT/HCPCS: 36415; 80053; 80061; 82043; 82570; 84439; 84443; 85025

== ENCOUNTER → 2017-11-29 | Outpatient (CLI) | payer MEDICAID | END | disposition home or self-care (01) | LOC: LABWHC1 12:08 | PROVIDERS: ATTEND Internal Medicine Endocrinology, Diabetes & Metabolism | DX: E10.65 Type 1 diabetes mellitus with hyperglycemia (principal) | CPT/HCPCS: 36415; 82947; 84681 ==

== ENCOUNTER 2018-04-29 09:27 | Observation (INO) | payer MEDICAID, OTHER ==
[2018-04-29 09:35] LABS: Glucose,Whole Blood 466 mg/dL (75-99)
[2018-04-29 09:38] VITALS: RESP 18
[2018-04-29] MEDS ORDERED: SODIUM CHLORIDE 0.9% 2,000 ML IV ONE (09:42)
--- NOTE | 2018-04-29 09:57 | ED ---
General Adult HPI - General Chief complaint: Recheck/Abnormal Lab/Rx Stated complaint: High blood sugar Time Seen by Provider: 04/29/18 09:41 Source: patient, RN notes reviewed Mode of arrival: ambulatory Limitations: no limitations - History of Present Illness Initial comments: This a 37-year-old female presents emergency Department chief complaint hyperglycemia. Patient states that over the last few days her blood sugar has been running between 400-600. Patient states that she is a type I diabetic. Patient states that she started feeling achy in her muscles across her chest and hips region. She states this is normal when she is concerned about DKA. She has had increase oral intake to try to help but states that she has probably dysuria. Patient states she did give herself insulin prior arrival. Patient denies any shortness breath, headache or any dizziness at times. She did feel nauseated and dizzy yesterday. Patient has no abdominal pain this time. Denies any vomiting, diarrhea or constipation. - Related Data Home Medications Medication Instructions Recorded Confirmed INSULIN LISPRO (humaLOG) [humaLOG] See Protocol SQ AC-TID 10/28/15 04/29/18 Lurasidone [Latuda] 80 mg PO HS 12/05/16 04/29/18 lamoTRIgine [LaMICtal] 150 mg PO HS 12/05/16 04/29/18 Insulin Glargine,Hum.rec.anlog 10 unit SQ DAILY@1700 04/29/18 04/29/18 [Basaglar Kwikpen U-100] cloNIDine HCL [Catapres] 0.1 mg PO HS 04/29/18 04/29/18 Allergies Allergy/AdvReac Type Severity Reaction Status Date / Time prednisone AdvReac Hallucinati Verified 04/29/18 10:21 ons Review of Systems ROS Statement: Those systems with pertinent positive or pertinent negative responses have been documented in the HPI. ROS Other: All systems not noted in ROS Statement are negative. Past Medical History Past Medical History: Diabetes Mellitus Additional Past Medical History / Comment(s): 01/07/15 admitted to [facility] with c/o liteheadeness/dizziness bs at home/meter read high>500 History of Any Multi-Drug Resistant Organisms: None Reported Past Surgical History: Breast Surgery, Section Additional Past Surgical History / Comment(s): x2, breast augmentation Past Anesthesia/Blood Transfusion Reactions: No Reported Reaction Past Psychological History: Anxiety, Bipolar, Depression, Panic Disorder Smoking Status: Current every day smoker Past Alcohol Use History: None Reported Past Drug Use History: None Reported - Past Family History Father Family Medical History: Hyperlipidemia, Hypertension Mother Family Medical History: No Reported History General Exam Limitations: no limitations General appearance: alert, in no apparent distress Head exam: Present: atraumatic, normocephalic, normal inspection Neck exam: Present: normal inspection, full ROM. Absent: tenderness, meningismus, lymphadenopathy Respiratory exam: Present: normal lung sounds bilaterally. Absent: respiratory distress, wheezes, rales, rhonchi, stridor Cardiovascular Exam: Present: normal rhythm, tachycardia, normal heart sounds. Absent: systolic murmur, diastolic murmur, rubs, gallop, clicks GI/Abdominal exam: Present: soft, normal bowel sounds. Absent: distended, tenderness, guarding, rebound, rigid Back exam: Absent: CVA tenderness (R), CVA tenderness (L) Skin exam: Present: warm, dry, intact, normal color. Absent: rash Course Vital Signs 04/29/18 04/29/18 09:28 10:04 Temperature 97.6 F Pulse Rate 105 H Respiratory 18 18 Rate Blood Pressure 154/102 O2 Sat by Pulse 100 Oximetry Medical Decision Making - Medical Decision Making 37-year-old female presented for hyperglycemia. Patient has been using samples for her insulin and states this may be causing her hyperglycemia. Patient has no cold like symptoms no signs of infection. Patient has had mild DKA. Patient was given 2 L bolus of fluids was started on normal saline at 200 hour. Patient will be started on DKA protocol at this time patient will be admitted to Dr. Bowen - Lab Data Result diagrams: 04/29/18 10:00 Lab Results 04/29/18 04/29/18 04/29/18 Range/Units 09:34 10:00 10:00 VBG pH 7.27 L (7.31-7.41) VBG pCO2 41 (37-51) mmHg VBG HCO3 18 L (24-28) mmol/L Sodium 135 L (137-145) mmol/L Potassium 4.4 (3.5-5.1) mmol/L Chloride 101 (98-107) mmol/L Carbon Dioxide 16 L (22-30) mmol/L Anion Gap 18 mmol/L BUN 11 (7-17) mg/dL Creatinine 0.51 L (0.52-1.04) mg/dL Est GFR (CKD-EPI)AfAm >90 (>60 ml/min/1.73 sqM) Est GFR (CKD-EPI)NonAf >90 (>60 ml/min/1.73 sqM) Glucose 443 H (74-99) mg/dL POC Glucose (mg/dL) 466 H (75-99) mg/dL POC Glu Chopper Feeder ID Becka Jordan Calcium 9.3 (8.4-10.2) mg/dL Magnesium 1.5 L (1.6-2.3) mg/dL Total Bilirubin 0.8 (0.2-1.3) mg/dL AST 22 (14-36) U/L ALT 24 (9-52) U/L Alkaline Phosphatase 63 (38-126) U/L Total Protein 7.1 (6.3-8.2) g/dL Albumin 4.3 (3.5-5.0) g/dL Lipase 169 (23-300) U/L Urine Color Urine Appearance (Clear) Urine pH (5.0-8.0) Ur Specific [place] (1.001-1.035) Urine Protein (Negative) Urine Glucose (UA) (Negative) Urine Blood (Negative) Urine Nitrite (Negative) Urine Bilirubin (Negative) Urine Urobilinogen (<2.0) mg/dL Ur Leukocyte Esterase (Negative) Acetone, Qual Positive (Negative) 04/29/18 Range/Units 10:00 VBG pH (7.31-7.41) VBG pCO2 (37-51) mmHg VBG HCO3 (24-28) mmol/L Sodium (137-145) mmol/L Potassium (3.5-5.1) mmol/L Chloride (98-107) mmol/L Carbon Dioxide (22-30) mmol/L Anion Gap mmol/L BUN (7-17) mg/dL Creatinine (0.52-1.04) mg/dL Est GFR (CKD-EPI)AfAm (>60 ml/min/1.73 sqM) Est GFR (CKD-EPI)NonAf (>60 ml/min/1.73 sqM) Glucose (74-99) mg/dL POC Glucose (mg/dL) (75-99) mg/dL POC Glu Chopper Feeder ID Calcium (8.4-10.2) mg/dL Magnesium (1.6-2.3) mg/dL Total Bilirubin (0.2-1.3) mg/dL AST (14-36) U/L ALT (9-52) U/L Alkaline Phosphatase (38-126) U/L Total Protein (6.3-8.2) g/dL Albumin (3.5-5.0) g/dL Lipase (23-300) U/L Urine Color Light Yellow Urine Appearance Clear (Clear) Urine pH 5.0 (5.0-8.0) Ur Specific [place] 1.014 (1.001-1.035) Urine Protein Negative (Negative) Urine Glucose (UA) 4+ H (Negative) Urine Blood Negative (Negative) Urine Nitrite Negative (Negative) Urine Bilirubin Negative (Negative) Urine Urobilinogen <2.0 (<2.0) mg/dL Ur Leukocyte Esterase Negative (Negative) Acetone, Qual (Negative) Disposition Clinical Impression: Diabetic ketoacidosis Disposition: ADMITTED IP TO THIS HOSP Condition: Fair Referrals: Azar Bowen MD [Primary Care Provider] - 1-2 days
[2018-04-29 10:46] LABS: ALT 24 U/L (9-52); AST 22 U/L (14-36); Albumin 4.3 g/dL (3.5-5.0); Alkaline Phosphatase 63 U/L (38-126); Anion Gap 18 mmol/L; Blood Urea Nitrogen 11 mg/dL (7-17); Calcium 9.3 mg/dL (8.4-10.2); Carbon Dioxide 16 mmol/L (22-30); Chloride 101 mmol/L (98-107); Glucose 443 mg/dL (74-99); Lipase 169 U/L (23-300); Magnesium 1.5 mg/dL (1.6-2.3); Potassium 4.4 mmol/L (3.5-5.1); Sodium 135 mmol/L (137-145); Total Bilirubin 0.8 mg/dL (0.2-1.3); Total Protein 7.1 g/dL (6.3-8.2)
--- NOTE | 2018-04-29 10:53 | XR ---
EXAMINATION TYPE: XR chest 2V DATE OF EXAM: 04/29/2018 COMPARISON: Chest x-ray March 08, 2017. HISTORY: Chest pain and hyperglycemia. TECHNIQUE: Frontal and lateral views of the chest are obtained. FINDINGS: Overlying EKG leads are redemonstrated. There is no focal air space opacity, pleural effusi on, or pneumothorax seen. The cardiac silhouette size is within normal limits. The osseous structu res are intact. IMPRESSION: No acute process. No significant change from prior.
[2018-04-29 10:57] LABS: VBG PH 7.27 (7.31-7.41)
[2018-04-29 11:04] LABS: Appearance,Urine Clear (Clear); Bilirubin,Urine Negative (Negative); Blood,Urine Negative (Negative); Color,Urine Light Yellow; Glucose,Urine (UA) 4+ (Negative); Leukocyte Esterase,Urine Negative (Negative); Nitrite,Urine Negative (Negative); Protein,Urine Negative (Negative); Specific Gravity,Urine 1.014 (1.001-1.035); Urobilinogen,Urine <2.0 mg/dL (<2.0)
[2018-04-29] MEDS ORDERED: SODIUM CHLORIDE 0.9% 1,000 ML IV SCH (11:15)
[2018-04-29] MEDS ORDERED: INSULIN REGULAR 100 UNIT in SODIUM CHLORIDE 0.9% 100 ML IV SCH (11:15)
[2018-04-29 11:20] LABS: Basophils % (A) 0 %; Eosinophils # (A) 0.1 k/uL (0-0.7); Eosinophils % (A) 1 %; HCT 43.9 % (34.0-46.0); HGB 13.5 gm/dL (11.4-16.0); Hypochromasia Slight; Lymphocytes # (A) 1.1 k/uL (1.0-4.8); Lymphocytes % (A) 9 %; MCH 28.1 pg (25.0-35.0); MCHC 30.7 g/dL (31.0-37.0); MCV 91.5 fL (80.0-100.0); Mean Platelet Volume 8.3; Monocytes # (A) 0.6 k/uL (0-1.0); Monocytes % (A) 5 %; Neutrophils # (A) 10.5 k/uL (1.3-7.7); Neutrophils % (A) 85 %; Platelet Count 283 k/uL (150-450); RDW 14.9 % (11.5-15.5); WBC 12.4 k/uL (3.8-10.6)
[2018-04-29 11:25] LABS: Ketones,Urine 3+ (Negative)
[2018-04-29 11:26] LABS: Glucose,Whole Blood 282 mg/dL (75-99)
[2018-04-29] MEDS ORDERED: KETOROLAC 30 MG/ML 1 ML VIAL IVP STA (11:30)
[2018-04-29] MEDS ORDERED: D5-0.45% NACL WITH KCL 20MEQ/L 1,000 ML IV SCH (11:45)
[2018-04-29 11:51] LABS: Partial Thromboplastin Time 24.9 sec (22.0-30.0)
[2018-04-29 12:04] VITALS: PULSE 84; TEMP 97.5
[2018-04-29] MEDS ORDERED: IBUPROFEN 800 MG TAB PO STA (12:13)
[2018-04-29 12:49] VITALS: BP 147/93; BMI 26.3
[2018-04-29 13:46] LABS: Glucose,Whole Blood 198 mg/dL (75-99)
[2018-04-29 14:09] LABS: Anion Gap 5 mmol/L; Blood Urea Nitrogen 8 mg/dL (7-17); Carbon Dioxide 23 mmol/L (22-30); Chloride 110 mmol/L (98-107); Glucose 159 mg/dL (74-99); Sodium 138 mmol/L (137-145)
[2018-04-29 14:52] LABS: Glucose,Whole Blood 150 mg/dL (75-99)
[2018-04-29 16:00] LABS: Glucose,Whole Blood 185 mg/dL (75-99)
== END 2018-04-29 16:39 | disposition left against medical advice (07) ==
LOC: EC 09:27 → 6SEL 11:32 → INTOOBSV 11:32 → 6SEL 11:43 → UNDODISIN 16:39
PROVIDERS: ADMIT Family Medicine; ATTEND Family Medicine
DX: E10.10 Type 1 diabetes mellitus with ketoacidosis without coma (principal); F41.0 Panic disorder [episodic paroxysmal anxiety]; F31.9 Bipolar disorder, unspecified; F41.9 Anxiety disorder, unspecified; F17.200 Nicotine dependence, unspecified, uncomplicated; Z79.4 Long term (current) use of insulin; Z79.899 Other long term (current) drug therapy; Z88.8 Allergy status to other drugs, medicaments and biological substances; Z82.49 Family history of ischemic heart disease and other diseases of the circulatory system; Z83.49 Family history of other endocrine, nutritional and metabolic diseases
CPT/HCPCS: 96361; 96365; 99285; 36415; 93005; 80051; 80053; 82565; 82803; 82009; 83690; 83735; 84100; 82947; 84520; 84484; 85025; 85610; 85730; 81003; 71046; G0378

== ENCOUNTER → 2019-08-18 | Outpatient (CLI) | payer OTHER ==
[2019-08-18 17:55] LABS: Anion Gap 6.3 mmol/L (4.00-12.00); Carbon Dioxide 26.7 mmol/L (21.6-31.8); Chol/HDL Ratio 2.26; LDL Cholesterol,Calculated 96.2 mg/dL (0.0-131.0); Potassium 4.5 mmol/L (3.5-5.5); VLDL Calculation 26.8 mg/dL (5.00-40.00)
[2019-08-18 17:56] LABS: African American GFR (CKD) 132.1 (60.0-200.0); Albumin 4.1 g/dL (3.80-4.90); Albumin/Globulin Ratio 2.56 (1.60-3.17); Calcium 8.4 mg/dL (8.7-10.3); Globulin 1.6 g/dL (1.6-3.3); Total Bilirubin 0.2 mg/dL (0.2-1.2); Total Protein 5.7 g/dL (6.2-8.2)
[2019-08-18 18:05] LABS: Follicle Stimulating Hormone 5.2 mIU/mL; T4, Free (Free Thyroxine) 1.2 ng/dL (0.80-1.80)
[2019-08-18 18:38] LABS: ACTH <5.00 pg/mL (0.00-45.99)
[2019-08-18 18:58] LABS: Microalbumin Creatinine Ratio <30 mg/g Creat (0-30); Urine Creatinine 10.7 mg/dL
== END | disposition home or self-care (01) ==
LOC: LABWHC1 11:17
PROVIDERS: ATTEND Internal Medicine Endocrinology, Diabetes & Metabolism
DX: E10.65 Type 1 diabetes mellitus with hyperglycemia (principal)
CPT/HCPCS: 36415; 80053; 80061; 82024; 82043; 82533; 82570; 82670; 83001; 84439; 84443; 84480

== ENCOUNTER 2019-10-06 13:15 | Observation (INO) | payer OTHER ==
[2019-10-06 13:38] LABS: Glucose,Whole Blood 236 mg/dL (75-99)
[2019-10-06] MEDS ORDERED: SODIUM CHLORIDE 0.9% 2,000 ML IV STA (13:54)
[2019-10-06] MEDS ORDERED: LORazepam 2 MG/ML INJ IV STA (13:56)
--- NOTE | 2019-10-06 14:03 | ED ---
General Adult HPI - General Chief complaint: Overdose Stated complaint: overdose Time Seen by Provider: 10/06/19 13:29 Source: patient, RN notes reviewed Mode of arrival: EMS Limitations: no limitations - History of Present Illness Initial comments: Patient is a pleasant 39-year-old female presenting to the emergency department after taking approximately 40 or more kraytom. Patient told nursing staff she was not depressed or suicidal however tells me that she does feel depressed and sometimes feel like she does not want to live anymore. Patient denies homicidal thoughts. No hallucinations. Patient states she does take this regularly however not normally this much. Patient states sometimes when she takes a lot like this it takes a while for her to wear off. Patient complains of feeling anxious and having palpitations. - Related Data Home Medications Medication Instructions Recorded Confirmed Lurasidone [Latuda] 120 mg PO HS 12/05/16 10/06/19 lamoTRIgine [LaMICtal] 150 mg PO BID 12/05/16 10/06/19 Insulin Lispro [Admelog] 0.01 units SQ-PUMP CONTINUOUS 10/06/19 10/06/19 Allergies Allergy/AdvReac Type Severity Reaction Status Date / Time prednisone AdvReac Hallucinati Verified 10/06/19 15:43 ons Review of Systems ROS Statement: Those systems with pertinent positive or pertinent negative responses have been documented in the HPI. ROS Other: All systems not noted in ROS Statement are negative. Constitutional: Denies: fever Eyes: Denies: eye pain ENT: Denies: ear pain Respiratory: Denies: cough Cardiovascular: Reports: palpitations. Denies: chest pain Endocrine: Denies: fatigue Gastrointestinal: Denies: abdominal pain Genitourinary: Denies: dysuria Musculoskeletal: Denies: back pain Skin: Denies: rash Neurological: Denies: weakness Psychiatric: Reports: anxiety, depression. Denies: auditory hallucinations, visual hallucinations, homicidal thoughts Past Medical History Past Medical History: Diabetes Mellitus Additional Past Medical History / Comment(s): Bipolar and depression History of Any Multi-Drug Resistant Organisms: None Reported Past Surgical History: Breast Surgery, Section Additional Past Surgical History / Comment(s): x2, breast augmentation Past Anesthesia/Blood Transfusion Reactions: No Reported Reaction Past Psychological History: Anxiety, Bipolar, Depression, Panic Disorder Smoking Status: Current every day smoker Past Alcohol Use History: None Reported Past Drug Use History: None Reported - Past Family History Father Family Medical History: Hyperlipidemia, Hypertension Mother Family Medical History: No Reported History General Exam Limitations: no limitations General appearance: alert, anxious Head exam: Present: normocephalic Eye exam: Present: normal appearance, PERRL ENT exam: Present: normal oropharynx Neck exam: Present: normal inspection Respiratory exam: Present: normal lung sounds bilaterally Cardiovascular Exam: Present: tachycardia Expanded Peripheral pulses: 2+: Radial (R), Radial (L), Dorsalis Pedis (R), Dorsalis Pedis (L) GI/Abdominal exam: Present: soft. Absent: tenderness Extremities exam: Present: normal inspection. Absent: pedal edema, calf tenderness Neurological exam: Present: alert. Absent: motor sensory deficit Psychiatric exam: Present: anxious Skin exam: Present: normal color Course Vital Signs 10/06/19 10/06/19 10/06/19 13:16 14:06 14:43 Temperature 99.5 F Pulse Rate 145 H 109 H Respiratory 22 18 Rate Blood Pressure 168/113 112/78 O2 Sat by Pulse 100 97 Oximetry 10/06/19 15:57 Temperature Pulse Rate 92 Respiratory 18 Rate Blood Pressure 109/72 O2 Sat by Pulse 98 Oximetry EKG Findings - EKG Comments: EKG Findings:: Neuro Luxiq card with a rate of 147. QRS 96. QT 334. QTC 522. Normal axis. Normal QRS. No acute ST change. Medical Decision Making - Medical Decision Making Patient was reevaluated and starting to improved. Case was again discussed with was controlled recommends 6 more hours of observation and repeat EKG as well as magnesium 2 g. case discussed with Dr. Thomas, who will admit covered for possible call. - Lab Data Result diagrams: 10/06/19 13:40 10/06/19 13:40 Lab Results 10/06/19 10/06/19 10/06/19 Range/Units 13:36 13:40 13:40 WBC 9.6 (3.8-10.6) k/uL RBC 4.56 (3.80-5.40) m/uL Hgb 12.4 (11.4-16.0) gm/dL Hct 39.1 (34.0-46.0) % MCV 85.9 (80.0-100.0) fL MCH 27.2 (25.0-35.0) pg MCHC 31.6 (31.0-37.0) g/dL RDW 15.8 H (11.5-15.5) % Plt Count 415 (150-450) k/uL Neutrophils % 75 % Lymphocytes % 12 % Monocytes % 8 % Eosinophils % 1 % Basophils % 0 % Neutrophils # 7.2 (1.3-7.7) k/uL Lymphocytes # 1.2 (1.0-4.8) k/uL Monocytes # 0.8 (0-1.0) k/uL Eosinophils # 0.1 (0-0.7) k/uL Basophils # 0.0 (0-0.2) k/uL PT 10.3 (9.0-12.0) sec INR 1.0 (<1.2) Sodium (137-145) mmol/L Potassium (3.5-5.1) mmol/L Chloride (98-107) mmol/L Carbon Dioxide (22-30) mmol/L Anion Gap mmol/L BUN (7-17) mg/dL Creatinine (0.52-1.04) mg/dL Est GFR (CKD-EPI)AfAm (>60 ml/min/1.73 sqM) Est GFR (CKD-EPI)NonAf (>60 ml/min/1.73 sqM) Glucose (74-99) mg/dL POC Glucose (mg/dL) 236 H (75-99) mg/dL POC Glu Ginner Helper ID Bowling, Fátima Calcium (8.4-10.2) mg/dL Total Bilirubin (0.2-1.3) mg/dL AST (14-36) U/L ALT (4-34) U/L Alkaline Phosphatase (38-126) U/L Creatine Kinase (30-135) U/L Total Protein (6.3-8.2) g/dL Albumin (3.5-5.0) g/dL Salicylates mg/dL Acetaminophen ug/mL Serum Alcohol mg/dL 10/06/19 10/06/19 Range/Units 13:40 15:26 WBC (3.8-10.6) k/uL RBC (3.80-5.40) m/uL Hgb (11.4-16.0) gm/dL Hct (34.0-46.0) % MCV (80.0-100.0) fL MCH (25.0-35.0) pg MCHC (31.0-37.0) g/dL RDW (11.5-15.5) % Plt Count (150-450) k/uL Neutrophils % % Lymphocytes % % Monocytes % % Eosinophils % % Basophils % % Neutrophils # (1.3-7.7) k/uL Lymphocytes # (1.0-4.8) k/uL Monocytes # (0-1.0) k/uL Eosinophils # (0-0.7) k/uL Basophils # (0-0.2) k/uL PT (9.0-12.0) sec INR (<1.2) Sodium 138 (137-145) mmol/L Potassium 4.3 (3.5-5.1) mmol/L Chloride 106 (98-107) mmol/L Carbon Dioxide 16 L (22-30) mmol/L Anion Gap 16 mmol/L BUN 13 (7-17) mg/dL Creatinine 0.57 (0.52-1.04) mg/dL Est GFR (CKD-EPI)AfAm >90 (>60 ml/min/1.73 sqM) Est GFR (CKD-EPI)NonAf >90 (>60 ml/min/1.73 sqM) Glucose 252 H (74-99) mg/dL POC Glucose (mg/dL) 271 H (75-99) mg/dL POC Glu Ginner Helper ID Jennifer Maki Calcium 9.2 (8.4-10.2) mg/dL Total Bilirubin 0.1 L (0.2-1.3) mg/dL AST 28 (14-36) U/L ALT 22 (4-34) U/L Alkaline Phosphatase 64 (38-126) U/L Creatine Kinase 63 (30-135) U/L Total Protein 6.8 (6.3-8.2) g/dL Albumin 4.3 (3.5-5.0) g/dL Salicylates <1.0 mg/dL Acetaminophen <10.0 ug/mL Serum Alcohol <10 mg/dL Disposition Clinical Impression: Drug overdose Disposition: ADMITTED IP TO THIS HOSP Is patient prescribed a controlled substance at d/c from ED?: No Referrals: None,Stated [Primary Care Provider] - 1-2 days Decision Time: 16:47
[2019-10-06 14:13] LABS: Basophils % (A) 0 %; Eosinophils # (A) 0.1 k/uL (0-0.7); Eosinophils % (A) 1 %; HCT 39.1 % (34.0-46.0); HGB 12.4 gm/dL (11.4-16.0); Lymphocytes # (A) 1.2 k/uL (1.0-4.8); Lymphocytes % (A) 12 %; MCH 27.2 pg (25.0-35.0); MCHC 31.6 g/dL (31.0-37.0); MCV 85.9 fL (80.0-100.0); Mean Platelet Volume 8.3; Monocytes # (A) 0.8 k/uL (0-1.0); Monocytes % (A) 8 %; Neutrophils # (A) 7.2 k/uL (1.3-7.7); Neutrophils % (A) 75 %; Platelet Count 415 k/uL (150-450); RBC 4.56 m/uL (3.80-5.40); RDW 15.8 % (11.5-15.5); WBC 9.6 k/uL (3.8-10.6)
[2019-10-06 14:16] LABS: Prothrombin Time 10.3 sec (9.0-12.0)
[2019-10-06 14:30] LABS: AST 28 U/L (14-36); Acetaminophen <10.0 ug/mL; African American GFR (CKD) >90 (>60 ml/min/1.73 sqM); Albumin 4.3 g/dL (3.5-5.0); Alcohol <10 mg/dL; Alkaline Phosphatase 64 U/L (38-126); Anion Gap 16 mmol/L; Blood Urea Nitrogen 13 mg/dL (7-17); Calcium 9.2 mg/dL (8.4-10.2); Carbon Dioxide 16 mmol/L (22-30); Chloride 106 mmol/L (98-107); Creatine Kinase 63 U/L (30-135); Glucose 252 mg/dL (74-99); Non-African American GFR(CKD) >90 (>60 ml/min/1.73 sqM); Potassium 4.3 mmol/L (3.5-5.1); Salicylate <1.0 mg/dL; Sodium 138 mmol/L (137-145); Total Bilirubin 0.1 mg/dL (0.2-1.3); Total Protein 6.8 g/dL (6.3-8.2)
[2019-10-06 14:36] LABS: ALT 22 U/L (4-34)
[2019-10-06 15:28] LABS: Glucose,Whole Blood 271 mg/dL (75-99)
[2019-10-06] MEDS ORDERED: INSULIN ASPART (NovoLOG) 100 UNIT/ML VIAL SQ ONE ×2 (15:42→22:53)
[2019-10-06] MEDS: MAGNESIUM SULFATE-D5W PMX 1 GM in DEXTROSE/WATER 1 100ML.BAG IVPB SCH ×2 (16:32→18:08)
[2019-10-06] MEDS ORDERED: NALOXONE 0.4 MG/ML 1 ML VIAL IV PRN ×2 (16:47→17:33)
[2019-10-06] MEDS ORDERED: INSULIN ASPART (NovoLOG) 100 UNIT/ML VIAL SQ SCH (17:30)
--- NOTE | 2019-10-06 17:43 | P.HPIM ---
History of Present Illness H&P Date: 10/06/19 Chief Complaint: Overdose 39-year-old female presenting to the emergency department after taking approximately 40 or more kraytom. Patient states she does take this regularly however she does not take that much normally. Patient has been inconsistent in her history in regards to feeling suicidal or depressed but she told the emergency room physician that she does feel depressed and sometimes feel like she does not want to live anymore. Patient denies homicidal thoughts. No hallucinations. Patient complains of feeling anxious and having palpitations. Denied nausea or vomiting. No fevers or chills. No chest pain, shortness of breath, no abdominal pain. In the emergency department EKG showed possible supraventricular tachycardia versus sinus tachycardia upon presentation, poison control was called, observation and follow-up EKG in 6 hours was advised. Laboratory evaluation was essentially negative. Patient will be admitted to medicine for further evaluation and management. Past Medical History Past Medical History: Diabetes Mellitus Additional Past Medical History / Comment(s): Bipolar and depression History of Any Multi-Drug Resistant Organisms: None Reported Past Surgical History: Breast Surgery, Section Additional Past Surgical History / Comment(s): x2, breast augmentation Past Anesthesia/Blood Transfusion Reactions: No Reported Reaction Past Psychological History: Anxiety, Bipolar, Depression, Panic Disorder Smoking Status: Current every day smoker Past Alcohol Use History: None Reported Past Drug Use History: None Reported - Past Family History Father Family Medical History: Hyperlipidemia, Hypertension Mother Family Medical History: No Reported History Medications and Allergies Home Medications Medication Instructions Recorded Confirmed Type Lurasidone [Latuda] 120 mg PO HS 12/05/16 10/06/19 History lamoTRIgine [LaMICtal] 150 mg PO BID 12/05/16 10/06/19 History Insulin Lispro [Admelog] 0.01 units SQ-PUMP CONTINUOUS 10/06/19 10/06/19 History Allergies Allergy/AdvReac Type Severity Reaction Status Date / Time prednisone AdvReac Hallucinati Verified 10/06/19 15:43 ons Physical Exam Vitals: Vital Signs Temp Pulse Resp BP Pulse Ox 10/06/19 15:57 92 18 109/72 98 10/06/19 14:43 109 H 18 112/78 97 10/06/19 14:06 99.5 F 10/06/19 13:16 145 H 22 168/113 100 Intake and Output 10/06/19 10/06/19 10/06/19 06:59 14:59 22:59 Other: Weight 54.885 kg Results CBC & Chem 7: 10/06/19 13:40 10/06/19 13:40 Labs: Abnormal Lab Results - Last 24 Hours (Table) 10/06/19 10/06/19 10/06/19 Range/Units 13:36 13:40 13:40 RDW 15.8 H (11.5-15.5) % Carbon Dioxide 16 L (22-30) mmol/L Glucose 252 H (74-99) mg/dL POC Glucose (mg/dL) 236 H (75-99) mg/dL Total Bilirubin 0.1 L (0.2-1.3) mg/dL 10/06/19 Range/Units 15:26 RDW (11.5-15.5) % Carbon Dioxide (22-30) mmol/L Glucose (74-99) mg/dL POC Glucose (mg/dL) 271 H (75-99) mg/dL Total Bilirubin (0.2-1.3) mg/dL Assessment and Plan Plan: Intentional overdose Rule out suicidal ideation/attempt Need to consult with psychiatry Sitter Tachycardia Could be sinus tachycardia versus supraventricular tachycardia Monitor on telemetry Follow-up EKG in 6 hours Type 1 diabetes Sliding scale insulin Insulin pump taken out in the emergency department Patient admitted to observation, expected length of stay less than 2 midnights
[2019-10-06] MEDS: SODIUM CHLORIDE 0.9% 1,000 ML IV SCH (18:08)
[2019-10-06 20:40] LABS: Glucose,Whole Blood 323 mg/dL (75-99)
[2019-10-06] MEDS ORDERED: LURASIDONE 40 MG TAB PO SCH (21:00)
[2019-10-06 21:11] LABS: Glucose,Whole Blood 365 mg/dL (75-99)
[2019-10-06] MEDS: lamoTRIgine 100 MG TAB PO SCH (21:22)
[2019-10-06] MEDS: INSULIN ASPART (NovoLOG) 100 UNIT/ML VIAL SQ SCH (21:24)
[2019-10-06] MEDS: LORazepam 2 MG/ML INJ IV PRN (21:25)
[2019-10-06 21:34] LABS: Amphetamine Screen,Urine Not Detected (NotDetected); Barbiturate Screen,Urine Not Detected (NotDetected); Benzodiazepines Screen,Urine Detected (NotDetected); Cocaine Screen,Urine Not Detected (NotDetected); Methadone Screen, Urine Not Detected (NotDetected); Opiate Screen,Urine Not Detected (NotDetected); Oxycodone Screen, Urine Not Detected (NotDetected); Phencyclidine Screen,Urine Not Detected (NotDetected); Tricyclic Antidepressant,Urine Not Detected (NotDetected); Urn Cannabinoid Scrn Not Detected (NotDetected)
[2019-10-06 21:41] LABS: Glucose,Whole Blood 405 mg/dL (75-99)
[2019-10-06 22:12] LABS: Glucose,Whole Blood 340 mg/dL (75-99)
[2019-10-06 22:42] LABS: Glucose,Whole Blood 309 mg/dL (75-99)
[2019-10-07 02:14] LABS: Glucose,Whole Blood 63 mg/dL (75-99)
[2019-10-07 02:22] LABS: Glucose,Whole Blood 89 mg/dL (75-99)
[2019-10-07] MEDS: SODIUM CHLORIDE 0.9% 1,000 ML IV SCH (05:28)
[2019-10-07] MEDS: LORazepam 2 MG/ML INJ IV PRN (06:22)
[2019-10-07 06:40] VITALS: BP 111/72; PULSE 82; RESP 18; TEMP 97
[2019-10-07 07:16] LABS: Glucose,Whole Blood 353 mg/dL (75-99)
[2019-10-07] MEDS: INSULIN ASPART (NovoLOG) 100 UNIT/ML VIAL SQ SCH ×2 (07:41→11:57)
[2019-10-07] MEDS: lamoTRIgine 100 MG TAB PO SCH (07:41)
[2019-10-07 09:38] LABS: Basophils % (A) 0 %; Eosinophils # (A) 0.1 k/uL (0-0.7); Eosinophils % (A) 1 %; HCT 35.2 % (34.0-46.0); HGB 10.8 gm/dL (11.4-16.0); Hypochromasia Moderate; Lymphocytes # (A) 0.9 k/uL (1.0-4.8); Lymphocytes % (A) 18 %; MCH 27.2 pg (25.0-35.0); MCHC 30.8 g/dL (31.0-37.0); MCV 88.3 fL (80.0-100.0); Mean Platelet Volume 8.6; Monocytes # (A) 0.3 k/uL (0-1.0); Monocytes % (A) 6 %; Neutrophils # (A) 3.9 k/uL (1.3-7.7); Neutrophils % (A) 74 %; Platelet Count 272 k/uL (150-450); RBC 3.98 m/uL (3.80-5.40); RDW 15.7 % (11.5-15.5); WBC 5.2 k/uL (3.8-10.6)
[2019-10-07 09:51] LABS: ALT 16 U/L (4-34); AST 20 U/L (14-36); African American GFR (CKD) >90 (>60 ml/min/1.73 sqM); Albumin 3.3 g/dL (3.5-5.0); Alkaline Phosphatase 43 U/L (38-126); Anion Gap 10 mmol/L; Blood Urea Nitrogen 13 mg/dL (7-17); Calcium 8.5 mg/dL (8.4-10.2); Carbon Dioxide 21 mmol/L (22-30); Chloride 105 mmol/L (98-107); Glucose 422 mg/dL (74-99); Non-African American GFR(CKD) >90 (>60 ml/min/1.73 sqM); Potassium 4.6 mmol/L (3.5-5.1); Sodium 136 mmol/L (137-145); Total Bilirubin 0.4 mg/dL (0.2-1.3); Total Protein 5.6 g/dL (6.3-8.2)
[2019-10-07 10:47] VITALS: BMI 21.4
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
[2019-10-07 11:55] LABS: Glucose,Whole Blood 326 mg/dL (75-99)
== END 2019-10-07 12:50 | disposition home or self-care (01) ==
LOC: EC 13:15 → 6NMEDSUR 16:48
PROVIDERS: ADMIT Internal Medicine; ATTEND Internal Medicine
DX: T50.991A Poisoning by other drugs, medicaments and biological substances, accidental (unintentional), initial encounter (principal); E10.65 Type 1 diabetes mellitus with hyperglycemia; E10.42 Type 1 diabetes mellitus with diabetic polyneuropathy; R00.0 Tachycardia, unspecified; F31.9 Bipolar disorder, unspecified; F17.200 Nicotine dependence, unspecified, uncomplicated; Z79.4 Long term (current) use of insulin; Z79.899 Other long term (current) drug therapy; Z88.8 Allergy status to other drugs, medicaments and biological substances
CPT/HCPCS: 96376 ×2; 96361 ×2; 96366 ×2; 82075; 96365; 96375; 99285; 36415; 93005 ×2; 80053 ×2; 82550; 85025 ×2; 85610; 81025; 80306; 83520; G0378 ×2; G0480 ×2; J2060 ×2; J3475; 80320; 80329

== ENCOUNTER 2020-03-09 00:20 | Emergency (ER) | payer OTHER ==
[2020-03-09 00:39] VITALS: RESP 16; TEMP 98.4
[2020-03-09 00:52] LABS: Glucose,Whole Blood 53 mg/dL (75-99)
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
[2020-03-09 01:45] LABS: Glucose,Whole Blood 45 mg/dL (75-99)
[2020-03-09 02:01] LABS: Glucose,Whole Blood 74 mg/dL (75-99)
[2020-03-09 02:25] LABS: Glucose,Whole Blood 91 mg/dL (75-99)
[2020-03-09 02:39] VITALS: BP 104/71; PULSE 100
== END 2020-03-09 02:34 | disposition home or self-care (01) ==
LOC: EC 00:20
DX: F10.129 Alcohol abuse with intoxication, unspecified (principal); Z04.1 Encounter for examination and observation following transport accident; F17.200 Nicotine dependence, unspecified, uncomplicated; F41.9 Anxiety disorder, unspecified; F31.9 Bipolar disorder, unspecified; F41.0 Panic disorder [episodic paroxysmal anxiety]; E11.9 Type 2 diabetes mellitus without complications; Z96.41 Presence of insulin pump (external) (internal); Z79.899 Other long term (current) drug therapy; Y90.9 Presence of alcohol in blood, level not specified; Z20.828 Contact with and (suspected) exposure to other viral communicable diseases; V43.52XA Car driver injured in collision with other type car in traffic accident, initial encounter; Y92.410 Unspecified street and highway as the place of occurrence of the external cause
CPT/HCPCS: 36415; 99283; U0003

== ENCOUNTER → 2020-10-19 | Outpatient (CLI) | payer OTHER ==
[2020-10-19 21:45] LABS: Hemoglobin A1C 7.6 % (4.0-6.0)
[2020-10-19 22:03] LABS: African American GFR (CKD) 124.7 (60.0-200.0); Albumin 4.3 g/dL (3.80-4.90); Albumin/Globulin Ratio 2.15 (1.60-3.17); Anion Gap 7.9 mmol/L (4.00-12.00); BUN/Creat Ratio 11.43 Ratio (12.00-20.00); Calcium 9.4 mg/dL (8.7-10.3); Carbon Dioxide 26.1 mmol/L (21.6-31.8); Chol/HDL Ratio 4.43; LDL Cholesterol,Calculated 146.6 mg/dL (0.0-131.0); Non-African American GFR(CKD) 107.6 (60.0-200.0); Potassium 4.3 mmol/L (3.5-5.5); Total Bilirubin 0.2 mg/dL (0.2-1.2); Total Protein 6.3 g/dL (6.2-8.2); VLDL Calculation 28.4 mg/dL (5.00-40.00)
== END | disposition home or self-care (01) ==
LOC: LABWHC1 10:58
PROVIDERS: ATTEND Internal Medicine Endocrinology, Diabetes & Metabolism
DX: E10.65 Type 1 diabetes mellitus with hyperglycemia (principal)
CPT/HCPCS: 36415; 80053; 80061; 83036; 84443

== ENCOUNTER 2020-12-16 19:46 | Inpatient (IN) | payer OTHER ==
[2020-12-16 19:58] LABS: Glucose,Whole Blood 55 mg/dL (75-99)
[2020-12-16] MEDS ORDERED: DEXTROSE 50% SYRINGE 50 ML IVP STA ×2 (20:12→23:26)
[2020-12-16 20:25] LABS: Appearance,Urine Clear (Clear); Bilirubin,Urine Negative (Negative); Blood,Urine Large (Negative); Budding Yeast,Urine Occasional /hpf; Color,Urine Colorless; Glucose,Urine (UA) Negative (Negative); Ketones,Urine Negative (Negative); Leukocyte Esterase,Urine Negative (Negative); Nitrite,Urine Negative (Negative); Protein,Urine Negative (Negative); RBC,Urine <1 /hpf (0-5); Specific Gravity,Urine 1.004 (1.001-1.035); Squamous Epithelial Cell,Urine <1 /hpf (0-4); Urobilinogen,Urine <2.0 mg/dL (<2.0); WBC,Urine <1 /hpf (0-5)
[2020-12-16 20:29] LABS: ALT 24 U/L (4-34); AST 26 U/L (14-36); African American GFR (CKD) >90 (>60 ml/min/1.73 sqM); Albumin 4.4 g/dL (3.5-5.0); Alkaline Phosphatase 51 U/L (38-126); Anion Gap 11 mmol/L; Blood Urea Nitrogen 6 mg/dL (7-17); Carbon Dioxide 25 mmol/L (22-30); Chloride 103 mmol/L (98-107); Glucose 56 mg/dL (74-99); Non-African American GFR(CKD) >90 (>60 ml/min/1.73 sqM); Potassium 3.3 mmol/L (3.5-5.1); Sodium 139 mmol/L (137-145); Total Bilirubin 0.2 mg/dL (0.2-1.3); Total Protein 7.2 g/dL (6.3-8.2)
[2020-12-16 20:30] LABS: Basophils # (A) 0.1 k/uL (0-0.2); Basophils % (A) 1 %; Eosinophils # (A) 0.2 k/uL (0-0.7); Eosinophils % (A) 2 %; HCT 42.1 % (34.0-46.0); Lymphocytes # (A) 4.1 k/uL (1.0-4.8); Lymphocytes % (A) 40 %; MCH 30.2 pg (25.0-35.0); MCHC 33.3 g/dL (31.0-37.0); MCV 90.7 fL (80.0-100.0); Mean Platelet Volume 7.7; Monocytes # (A) 0.5 k/uL (0-1.0); Monocytes % (A) 5 %; Neutrophils # (A) 5.3 k/uL (1.3-7.7); Neutrophils % (A) 51 %; Platelet Count 402 k/uL (150-450); RBC 4.65 m/uL (3.80-5.40); RDW 13.3 % (11.5-15.5); WBC 10.3 k/uL (3.8-10.6)
--- NOTE | 2020-12-16 20:30 | ED ---
General Adult HPI - General Chief complaint: Recheck/Abnormal Lab/Rx Stated complaint: hypoglycemia Time Seen by Provider: 12/16/20 20:01 Source: patient Mode of arrival: ambulatory Limitations: no limitations - History of Present Illness Initial comments: 40-year-old female with IDDM type I presents to the emergency department for a chief complaint of medication problems. Patient reports that 3 hours ago her insulin meter read high which is not uncommon for her. States that she gave herself a double dose of her long-acting and short-acting insulin. She gave 100 units of Lantus. Patient reports she started to feel shaky. States she is concerned because of the long-acting insulin.Patient has no other complaints at this time including shortness of breath, chest pain, abdominal pain, nausea or vomiting, headache, or visual changes. - Related Data Home Medications Medication Instructions Recorded Confirmed lamoTRIgine [LaMICtal] 150 mg PO BID 12/05/16 12/16/20 DULoxetine HCL [Cymbalta] 60 mg PO HS 12/16/20 12/16/20 INSULIN LISPRO (humaLOG) [humaLOG] See Protocol SQ AC-TID 12/16/20 12/16/20 Insulin Glargine,Hum.rec.anlog 50 unit SQ W/SUPPER 12/16/20 12/16/20 [Lantus Solostar] Lurasidone HCl [Latuda] 120 mg PO HS 12/16/20 12/16/20 Mirtazapine [Remeron] 15 mg PO HS 12/16/20 12/16/20 Phentermine HCl [Adipex-P] 37.5 mg PO DAILY 12/16/20 12/16/20 busPIRone HCl [Buspar] 5 mg PO HS 12/16/20 12/16/20 Allergies Allergy/AdvReac Type Severity Reaction Status Date / Time prednisone AdvReac Hallucinati Verified 12/16/20 19:53 ons Review of Systems ROS Statement: Those systems with pertinent positive or pertinent negative responses have been documented in the HPI. ROS Other: All systems not noted in ROS Statement are negative. Past Medical History Past Medical History: Diabetes Mellitus Additional Past Medical History / Comment(s): Bipolar and depression History of Any Multi-Drug Resistant Organisms: None Reported Past Surgical History: Breast Surgery, Section Additional Past Surgical History / Comment(s): x2, breast augmentation Past Anesthesia/Blood Transfusion Reactions: No Reported Reaction Past Psychological History: Anxiety, Bipolar, Depression, Panic Disorder Smoking Status: Current every day smoker Past Alcohol Use History: Occasional Past Drug Use History: None Reported - Past Family History Father Family Medical History: Hyperlipidemia, Hypertension Mother Family Medical History: No Reported History General Exam Limitations: no limitations General appearance: alert, in no apparent distress Head exam: Present: atraumatic, normocephalic, normal inspection Eye exam: Present: normal appearance, PERRL, EOMI. Absent: scleral icterus, conjunctival injection, periorbital swelling ENT exam: Present: normal exam, mucous membranes moist Neck exam: Present: normal inspection, full ROM. Absent: tenderness, meningismus, lymphadenopathy Respiratory exam: Present: normal lung sounds bilaterally. Absent: respiratory distress, wheezes, rales, rhonchi, stridor Cardiovascular Exam: Present: regular rate, normal rhythm, normal heart sounds. Absent: systolic murmur, diastolic murmur, rubs, gallop, clicks GI/Abdominal exam: Present: soft, normal bowel sounds. Absent: distended, tenderness, guarding, rebound, rigid Neurological exam: Present: alert, oriented X3, CN II-XII intact Course Vital Signs 12/16/20 19:49 Temperature 98.1 F Pulse Rate 99 Respiratory 18 Rate Blood Pressure 141/90 O2 Sat by Pulse 99 Oximetry Medical Decision Making - Medical Decision Making Vitals are stable. Patient's glucose initially 55. She was given an amp of dextrose which did decrease this to 180. It then decreased again to 53. Patient was started on D5. Patient will be admitted for hypoglycemia secondary to insulin. Potassium was also replaced orally. Patient ended up signing out AGAINST MEDICAL ADVICE. Patient is alert and oriented when making this decision. I had several lengthy discussions with patient encouraging her to stay. I discussed the risk of severe hypoglycemia, coma, and even . Patient reports that she has been doing this a long time and lives with her brother and his 5 children. She reports that she will be making sure to eat and drink sugar and her brother can watch her. She reports her meter will alert everyone every minute if her blood sugar goes too low. Patient aware to return to the emergency room if she has any worsening symptoms. Again encouraged her to stay for further management however she wants to sign out AGAINST MEDICAL ADVICE. - Lab Data Result diagrams: 12/16/20 20:13 12/16/20 20:13 Lab Results 12/16/20 12/16/20 12/16/20 Range/Units 19:54 20:13 20:13 WBC 10.3 (3.8-10.6) k/uL RBC 4.65 (3.80-5.40) m/uL Hgb 14.0 (11.4-16.0) gm/dL Hct 42.1 (34.0-46.0) % MCV 90.7 (80.0-100.0) fL MCH 30.2 (25.0-35.0) pg MCHC 33.3 (31.0-37.0) g/dL RDW 13.3 (11.5-15.5) % Plt Count 402 (150-450) k/uL MPV 7.7 Neutrophils % 51 % Lymphocytes % 40 % Monocytes % 5 % Eosinophils % 2 % Basophils % 1 % Neutrophils # 5.3 (1.3-7.7) k/uL Lymphocytes # 4.1 (1.0-4.8) k/uL Monocytes # 0.5 (0-1.0) k/uL Eosinophils # 0.2 (0-0.7) k/uL Basophils # 0.1 (0-0.2) k/uL Sodium (137-145) mmol/L Potassium (3.5-5.1) mmol/L Chloride (98-107) mmol/L Carbon Dioxide (22-30) mmol/L Anion Gap mmol/L BUN (7-17) mg/dL Creatinine (0.52-1.04) mg/dL Est GFR (CKD-EPI)AfAm (>60 ml/min/1.73 sqM) Est GFR (CKD-EPI)NonAf (>60 ml/min/1.73 sqM) Glucose (74-99) mg/dL POC Glucose (mg/dL) 55 L (75-99) mg/dL POC Glu Inbound Customer Service Agent ID Roxi De La Fuente Calcium (8.4-10.2) mg/dL Total Bilirubin (0.2-1.3) mg/dL AST (14-36) U/L ALT (4-34) U/L Alkaline Phosphatase (38-126) U/L Total Protein (6.3-8.2) g/dL Albumin (3.5-5.0) g/dL Urine Color Colorless Urine Appearance Clear (Clear) Urine pH 7.0 (5.0-8.0) Ur Specific [place] 1.004 (1.001-1.035) Urine Protein Negative (Negative) Urine Glucose (UA) Negative (Negative) Urine Ketones Negative (Negative) Urine Blood Large H (Negative) Urine Nitrite Negative (Negative) Urine Bilirubin Negative (Negative) Urine Urobilinogen <2.0 (<2.0) mg/dL Ur Leukocyte Esterase Negative (Negative) Urine RBC <1 (0-5) /hpf Urine WBC <1 (0-5) /hpf Ur Squamous Epith Cells <1 (0-4) /hpf Urine Yeast (Budding) Occasional H (None) /hpf 12/16/20 12/16/20 Range/Units 20:13 21:40 WBC (3.8-10.6) k/uL RBC (3.80-5.40) m/uL Hgb (11.4-16.0) gm/dL Hct (34.0-46.0) % MCV (80.0-100.0) fL MCH (25.0-35.0) pg MCHC (31.0-37.0) g/dL RDW (11.5-15.5) % Plt Count (150-450) k/uL MPV Neutrophils % % Lymphocytes % % Monocytes % % Eosinophils % % Basophils % % Neutrophils # (1.3-7.7) k/uL Lymphocytes # (1.0-4.8) k/uL Monocytes # (0-1.0) k/uL Eosinophils # (0-0.7) k/uL Basophils # (0-0.2) k/uL Sodium 139 (137-145) mmol/L Potassium 3.3 L (3.5-5.1) mmol/L Chloride 103 (98-107) mmol/L Carbon Dioxide 25 (22-30) mmol/L Anion Gap 11 mmol/L BUN 6 L (7-17) mg/dL Creatinine 0.64 (0.52-1.04) mg/dL Est GFR (CKD-EPI)AfAm >90 (>60 ml/min/1.73 sqM) Est GFR (CKD-EPI)NonAf >90 (>60 ml/min/1.73 sqM) Glucose 56 L (74-99) mg/dL POC Glucose (mg/dL) 53 L (75-99) mg/dL POC Glu Inbound Customer Service Agent Deepali Pinzon Calcium 10.0 (8.4-10.2) mg/dL Total Bilirubin 0.2 (0.2-1.3) mg/dL AST 26 (14-36) U/L ALT 24 (4-34) U/L Alkaline Phosphatase 51 (38-126) U/L Total Protein 7.2 (6.3-8.2) g/dL Albumin 4.4 (3.5-5.0) g/dL Urine Color Urine Appearance (Clear) Urine pH (5.0-8.0) Ur Specific [place] (1.001-1.035) Urine Protein (Negative) Urine Glucose (UA) (Negative) Urine Ketones (Negative) Urine Blood (Negative) Urine Nitrite (Negative) Urine Bilirubin (Negative) Urine Urobilinogen (<2.0) mg/dL Ur Leukocyte Esterase (Negative) Urine RBC (0-5) /hpf Urine WBC (0-5) /hpf Ur Squamous Epith Cells (0-4) /hpf Urine Yeast (Budding) (None) /hpf Disposition Clinical Impression: Hypoglycemia due to insulin Disposition: ADMITTED IP TO THIS HOSP Is patient prescribed a controlled substance at d/c from ED?: No Time of Disposition: 22:01
[2020-12-16] MEDS ORDERED: POTASSIUM CHLORIDE ER 20 MEQ TAB.ER PO STA (20:35)
[2020-12-16 21:41] LABS: Glucose,Whole Blood 53 mg/dL (75-99)
[2020-12-16] MEDS ORDERED: DEXTROSE 5%-0.45% NACL 1,000 ML IV ONE (21:49)
[2020-12-16] MEDS ORDERED: NALOXONE 0.4 MG/ML 1 ML VIAL IV PRN (22:02)
[2020-12-16 23:06] LABS: Glucose,Whole Blood 46 mg/dL (75-99)
[2020-12-17] MEDS ORDERED: DEXTROSE 50% SYRINGE 50 ML IVP STA ×2 (00:32→02:30)
[2020-12-17 00:33] LABS: Glucose,Whole Blood 42 mg/dL (75-99)
[2020-12-17 01:02] LABS: Glucose,Whole Blood 127 mg/dL (75-99)
[2020-12-17] MEDS: MIRTAZAPINE 15 MG TAB PO SCH ×2 (01:02→21:50)
[2020-12-17] MEDS: lamoTRIgine 100 MG TAB PO SCH ×3 (01:02→21:49)
[2020-12-17] MEDS: LURASIDONE 40 MG TAB PO SCH ×2 (01:02→21:49)
[2020-12-17] MEDS: busPIRone HCl 5 MG TAB PO SCH ×2 (01:04→21:49)
[2020-12-17] MEDS: DULoxetine HCL 60 MG CAPSULE.DR PO SCH ×2 (01:04→21:49)
[2020-12-17] MEDS: DEXTROSE 5%-0.45% NACL 1,000 ML IV SCH ×3 (01:38→18:40)
[2020-12-17 02:04] LABS: Glucose,Whole Blood 56 mg/dL (75-99)
[2020-12-17] MEDS ORDERED: DEXTROSE 50% SYRINGE 50 ML IVP ONE (02:23)
[2020-12-17 02:31] LABS: Glucose,Whole Blood 37 mg/dL (75-99)
[2020-12-17 02:37] LABS: Glucose,Whole Blood 143 mg/dL (75-99)
[2020-12-17] MEDS ORDERED: DEXTROSE 10 % IN WATER 250 ML IV ONE (03:00)
[2020-12-17] MEDS: DEXTROSE 10% IN WATER 1,000 ML in EMPTY BAG 1 BAG IV SCH ×3 (03:06→22:34)
[2020-12-17 03:35] LABS: Glucose,Whole Blood 68 mg/dL (75-99)
[2020-12-17 03:56] LABS: Glucose,Whole Blood 83 mg/dL (75-99)
[2020-12-17 04:22] LABS: Glucose,Whole Blood 101 mg/dL (75-99)
[2020-12-17 05:22] LABS: Glucose,Whole Blood 54 mg/dL (75-99)
[2020-12-17 05:48] LABS: Glucose,Whole Blood 72 mg/dL (75-99)
[2020-12-17 05:59] LABS: Glucose,Whole Blood 91 mg/dL (75-99)
[2020-12-17 06:28] LABS: Glucose,Whole Blood 156 mg/dL (75-99)
[2020-12-17 07:00] LABS: Glucose,Whole Blood 212 mg/dL (75-99)
[2020-12-17 07:31] LABS: Glucose,Whole Blood 203 mg/dL (75-99)
[2020-12-17 08:04] LABS: Glucose,Whole Blood 202 mg/dL (75-99)
[2020-12-17 08:35] LABS: Glucose,Whole Blood 192 mg/dL (75-99)
[2020-12-17 11:41] LABS: Glucose,Whole Blood 78 mg/dL (75-99)
[2020-12-17] MEDS ORDERED: Magnesium Replacement Protocol 1 EACH MISC MISCELLANE PRN (16:13)
[2020-12-17] MEDS ORDERED: Potassium Replacement Protocol 1 EACH MISC MISCELLANE PRN (16:13)
[2020-12-17] MEDS: NON FORMULARY DRUG (Phentermine Hcl [Adipex-P] 37.5 MG Tablet) PO SCH (16:53)
[2020-12-17 16:59] LABS: Glucose,Whole Blood 195 mg/dL (75-99)
[2020-12-17] MEDS ORDERED: POTASSIUM CHLORIDE ER 20 MEQ TAB.ER PO SCH (17:00)
[2020-12-17] MEDS ORDERED: INSULIN DETEMIR (LEVEMIR) 100 UNIT/ML SYR SQ SCH (17:30)
--- NOTE | 2020-12-17 19:41 | HP ---
HISTORY AND PHYSICAL CHIEF COMPLAINT: Hypoglycemia. HISTORY OF PRESENT ILLNESS: This 40-year-old woman with a past medical history of diabetes mellitus, type 1, history of bipolar, depression, history of breast surgery, history of anxiety, panic disorder, being followed by Dr. Nichol Mcrae in the outpatient setting, was on an insulin pump; however, because of insurance reasons the patient is not on pump currently. Patient is on daily insulin. Apparently the patient had an additional injection of 50 units of insulin and the patient's blood sugar was found to be very low. The patient has gotten 100 units of Lantus. The sugars are in the 40s and the patient was admitted for further evaluation and treatment. After D50 boluses and D5 water drip, the blood sugar improved and currently is 78 at this time. There is no history of any fever, rigor or chills at this time. PAST MEDICAL HISTORY: History of diabetes mellitus, type 2, bipolar, depression, history of anxiety, panic attacks. HOME MEDICATIONS: Adipex 37.5 mg p.o. daily, Humalog before meals t.i.d., BuSpar, Remeron, Latuda, Lantus 50 units subcutaneously with supper, Cymbalta, Lamictal. ALLERGIES: PREDNISONE. FAMILY HISTORY: History of hypertension, hyperlipidemia. SOCIAL HISTORY: History of smoking. No history of alcohol intake. REVIEW OF SYSTEMS: ENT: No diminished hearing. No diminished vision. CARDIOVASCULAR SYSTEM: As mentioned earlier. RESPIRATORY SYSTEM: As mentioned earlier. GI: As mentioned earlier. : No dysuria or retention. NERVOUS SYSTEM: No numbness, weakness. ALLERGY/IMMUNOLOGY: No asthma, hayfever. MUSCULOSKELETAL: As mentioned earlier. HEMATOLOGY/ONCOLOGY: No history of anemia. ENDOCRINE: As mentioned earlier. CONSTITUTIONAL: As mentioned earlier. DERMATOLOGY: Negative. RHEUMATOLOGY: Negative. PSYCHIATRY: As mentioned earlier. PHYSICAL EXAMINATION: Patient alert and oriented x3. Pulse 92, blood pressure 143/85, respiration 18, temperature 98.2, pulse ox 99% on room air. HEENT: Conjunctivae normal. Oral mucosa moist. The patient has some hoarseness of voice and is being evaluated by ENT surgeon at this time. NECK: No jugular venous distention. No carotid bruit. No lymph node enlargement. CARDIOVASCULAR SYSTEM: S1, S2 muffled. RESPIRATORY SYSTEM: Breath sounds diminished at the bases. No rhonchi. No crackles. ABDOMEN: Soft, non-tender. No mass palpable. LEGS: No edema. No swelling. NERVOUS SYSTEM: Higher functions as mentioned earlier. Moves all 4 limbs. No focal motor or sensory deficit. LYMPHATICS: No lymph node palpable in neck, axillae or groin. SKIN: No ulcer, rash, bleeding. JOINTS: No active deforming arthropathy. LABS: CBC within normal limits. Sodium 139, potassium 3.3. Accu-Cheks noted: 46 and 78. Other labs are noted. UA noted. COVID-19 is negative. ASSESSMENT: 1. Diabetes mellitus, type with hypoglycemia, uncontrolled. 2. Hypokalemia. 3. History of bipolar, depression. 4. History of anxiety. 5. History of panic disorder. 6. History of nicotine dependence. 7. FULL CODE. RECOMMENDATIONS AND DISCUSSION: In this 40-year-old woman who presented with multiple medical issues, at this time I recommend to continue the current medications, continue with symptomatic treatment. Resume the home dose of insulin and continue to monitor. Accu-Cheks before meals and at bedtime. Prognosis is guarded because of multiple complex medical issues. Further recommendations to follow. A copy of this dictation is being forwarded to Dr. Nichol Mcrae, who is the primary physician. MMODL / IJN: [id number] / MTDD
[2020-12-17 20:49] LABS: Glucose,Whole Blood 235 mg/dL (75-99)
[2020-12-17] MEDS: INSULIN ASPART (NovoLOG) 100 UNIT/ML VIAL SQ SCH (21:50)
[2020-12-18] MEDS: DEXTROSE 5%-0.45% NACL 1,000 ML IV SCH (02:53)
[2020-12-18 07:00] LABS: Glucose,Whole Blood 60 mg/dL (75-99)
[2020-12-18] MEDS: INSULIN ASPART (NovoLOG) 100 UNIT/ML VIAL SQ SCH ×2 (07:00→12:15)
[2020-12-18 07:21] LABS: Glucose,Whole Blood 95 mg/dL (75-99)
[2020-12-18] MEDS: DEXTROSE 10% IN WATER 1,000 ML in EMPTY BAG 1 BAG IV SCH (07:31)
[2020-12-18] MEDS: NON FORMULARY DRUG (Phentermine Hcl [Adipex-P] 37.5 MG Tablet) PO SCH (07:32)
[2020-12-18] MEDS: lamoTRIgine 100 MG TAB PO SCH (07:32)
[2020-12-18 08:30] VITALS: BP 135/88; PULSE 93; RESP 18; TEMP 98.4
[2020-12-18 11:30] LABS: Basophils # (A) 0.02 X 10*3/uL (0.00-0.10); Basophils % (A) 0.4 %; Eosinophils # (A) 0.06 X 10*3/uL (0.04-0.35); Eosinophils % (A) 1.1 %; HCT 39.5 % (37.2-46.3); HGB 12.5 g/dL (12.0-15.0); Lymphocytes # (A) 1.99 X 10*3/uL (0.90-5.00); Lymphocytes % (A) 36.5 %; MCH 29.6 pg (27.0-32.0); MCHC 31.6 g/dL (32.0-37.0); MCV 93.6 fL (80.0-97.0); Mean Platelet Volume 10.6 fL (9.5-12.2); Monocytes # (A) 0.62 X 10*3/uL (0.20-1.00); Monocytes % (A) 11.4 %; Neutrophils # (A) 2.73 X 10*3/uL (1.80-7.70); Platelet Count 285 X 10*3/uL (140-440); RBC 4.22 X 10*6/uL (4.10-5.20); RDW 14.2 % (11.5-14.5); WBC 5.45 X 10*3/uL (4.50-10.00)
[2020-12-18 11:38] LABS: Glucose,Whole Blood 186 mg/dL (75-99)
[2020-12-18 12:16] LABS: African American GFR (CKD) 131.2 (60.0-200.0); Anion Gap 3.9 mmol/L (4.00-12.00); Calcium 8.4 mg/dL (8.7-10.3); Carbon Dioxide 28.1 mmol/L (21.6-31.8); Magnesium 1.9 mg/dL (1.5-2.4); Non-African American GFR(CKD) 113.2 (60.0-200.0); Potassium 4.1 mmol/L (3.5-5.5)
--- NOTE | 2020-12-18 13:09 | XR ---
EXAMINATION TYPE: XR chest 1V portable DATE OF EXAM: 12/18/2020 COMPARISON: 04/29/2018 HISTORY: Cough TECHNIQUE: Single frontal view of the chest is obtained. FINDINGS: There is no focal air space opacity, pleural effusion, or pneumothorax seen. The cardiac silhouette size is within normal limits. The osseous structures are intact. IMPRESSION: No acute process.
[2020-12-18] MEDS ORDERED: lamoTRIgine 100 MG TAB PO SCH (21:00)
--- NOTE | 2020-12-18 23:23 | DS ---
DISCHARGE SUMMARY DATE OF SERVICE: 12/18/2020 FINAL DIAGNOSES: 1. Diabetes mellitus type 2 with hypoglycemia uncontrolled, improved with accidental injection of higher dose of insulin. 2. Hypokalemia, improved. 3. History of bipolar/depression. 4. History of anxiety. 5. History of panic disorder. 6. History nicotine dependence. 7. FULL CODE. DISCHARGE DISPOSITION: The patient discharged in stable condition with guarded prognosis. HISTORY OF PRESENT ILLNESS: This 40-year-old woman with a past medical history of multiple medical problems being followed by Dr. Nichol Mcrae in the outpatient setting was admitted with hypoglycemia. Patient apparently taken 50 dose of extra insulin. Patient monitored closely. Patient on IV dextrose and as well as . Patient improved significantly. I recommend resume the dose of 50 units subcu q.h.s. and cut down to 40 if the sugars are low. The patient is an RN. The patient understands and agrees. On exam, vitals are stable. Cardiovascular: S1, S2. Abdomen soft. Nervous system: No focal deficits. DISCHARGE ADVICE AND MEDICATIONS: 1. Diet is cardiac. 2. Activity limited until follow up. 3. Follow up with Dr. Nichol Mcrae in 1-2 days. 4. CBC, BMP. DISCHARGE MEDICATIONS: 1. Adipex 37.5 mg p.o. daily. 2. BuSpar 5 mg q.h.s. 3. Cymbalta 60 mg q.h.s. 4. Humalog scale. 5. Lamictal 150 mg p.o. b.i.d. 6. Insulin 40 units subcu q.h.s. 7. Latuda 120 mg q.h.s. 8. Remeron 15 mg q.h.s. 9. The patient is talking to [employer], the patient's insurance company to obtain an insulin pump, which the patient requires for better diabetic control. Once again the patient discharged in stable condition with guarded prognosis. MMODL / IJN: [id number] / MTDD
== END 2020-12-18 14:28 | disposition home or self-care (01) | DRG 918 ==
LOC: EC 19:46 → 4SSUR 21:43 → OBSVTOIN 12-18 11:15
PROVIDERS: ADMIT Hospitalist; ATTEND Hospitalist
DX: T38.3X1A Poisoning by insulin and oral hypoglycemic [antidiabetic] drugs, accidental (unintentional), initial encounter (principal); E10.649 Type 1 diabetes mellitus with hypoglycemia without coma; E87.6 Hypokalemia; Z79.4 Long term (current) use of insulin; F31.9 Bipolar disorder, unspecified; Z20.822 Contact with and (suspected) exposure to COVID-19; F41.0 Panic disorder [episodic paroxysmal anxiety]; F17.200 Nicotine dependence, unspecified, uncomplicated; Z71.6 Tobacco abuse counseling; Z79.899 Other long term (current) drug therapy; Z88.8 Allergy status to other drugs, medicaments and biological substances; Y92.009 Unspecified place in unspecified non-institutional (private) residence as the place of occurrence of the external cause; Z82.49 Family history of ischemic heart disease and other diseases of the circulatory system; Z83.49 Family history of other endocrine, nutritional and metabolic diseases
CPT/HCPCS: 36415; 71045; 80048; 80053; 81001; 82947; 83735; 84132; 85025; 87635; 96374; 99285